=== PATIENT | female | born 1940 | race Caucasian/White ===

== ENCOUNTER 2017-03-08 09:12 | Emergency (ER) | payer OTHER, SELFPAY ==
[2017-03-08 09:22] VITALS: BP 171/101; PULSE 79; RESP 16; TEMP 36.7; O2SAT 100; BMI 33.0
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
[2017-03-08 11:15] VITALS: BP 156/98; PULSE 72; TEMP 36.9; O2SAT 98
== END 2017-03-08 11:22 | disposition home or self-care (01) ==
LOC: ER 10:08
PROVIDERS: Emergency Provider Emergency Medicine; Family Provider Family Medicine
DX: S80.01XA Contusion of right knee, initial encounter (principal); V43.52XA Car driver injured in collision with other type car in traffic accident, initial encounter; Y92.481 Parking lot as the place of occurrence of the external cause; Y93.89 Activity, other specified; Z88.6 Allergy status to analgesic agent
CPT/HCPCS: 73562; 99281; 99282

== ENCOUNTER 2017-03-15 18:39 | Emergency (ER) | payer MEDICARE, BC, SELFPAY ==
[2017-03-15 18:54] VITALS: BP 120/80; PULSE 107; RESP 20; TEMP 37; O2SAT 98; BMI 30.2
--- NOTE | 2017-03-15 18:59 | HMH.EDUTC ---
[facility] [place] Disposition Clinical Impression: Sore throat Disposition: Home, Self-Care Condition on Discharge: Good Instructions: DI for Chronic Pain -- Adult, Sore Throat Additional Instructions: Tylenol or ibuprofen as needed for pain or fever Salt water gargles every 2 as needed Follow-up with primary care this week Medication discussed with patient If symptoms worsen or do not improve return or be seen in the ER Prescriptions: Azithromycin [Zithromax 250mg tab] 250 mg PO DIRECTED 5 Days #6 tab Referrals: Andi Garvin MD [Family Provider] - Time of Disposition: 19:21 Medical Decision Making Vital Signs: 03/15/17 18:54 Temperature 98.6 F Temperature Source Temporal Artery Scan Pulse Rate [Right Radial] 107 H Respiratory Rate 20 Blood Pressure [Right Arm] 120/80 Blood Pressure Mean [Right Arm] 93 Blood Pressure Source [Right Arm] Automatic Cuff Blood Pressure Position [Right Arm] Sitting 02 Sat by Pulse Oximetry 98 Oxygen Delivery Method Room Air - Lab Data Lab Results 03/15/17 19:04: Influenza Type A Ag Negative, Influenza Type B Ag Negative, Strep Scn Rapid Clinic Negative - Sammy Inquiry Pt receiving controlled substance: No [facility] [place] HPI - General Stated complaint: Fever,sore throat Time Seen by Provider: 03/15/17 19:00 Mode of Arrival: Ambulatory Source of Information: Patient Limitations: No Limitations Description of Symptoms (Recalled from Triage Doc. by RN): PATIENT HAS A SORE THROAT HEENT Symptoms (Recalled from RN notes): No Resp Symptoms (Recalled from RN notes): No Skin Symptoms (Recalled from RN notes): No MS Symptoms (Recalled from RN notes): No Functional Status (Recalled from RN notes): NA - History of Present Illness Provider Complaint: A 42-year-old female presents for body aches, sore throat, headache, and chest congestion. Patient states she was seen on Thursday by Dr. Garvin placed on [employer]. Patient states she called him back on and time she went feeling any better she was instructed to give the antibiotic time to work. Patient states today she feels worse. - Related Data Home Medications Medication Instructions Recorded Confirmed Levothyroxine Sodium [Synthroid 125 mcg PO DAILY 03/15/17 03/15/17 125mcg (0.125mg) tablet] Meloxicam 15 mg PO DAILY 03/15/17 03/15/17 Metformin HCl [Metformin 500mg 500 tab PO BID 03/15/17 03/15/17 Tablet] Pravastatin Sodium [Pravachol] 40 mg PO DAILY 03/15/17 03/15/17 diazePAM [diazePAM 5mg Tablet] 5 tab PO DAILY 03/15/17 03/15/17 Previous Rx's Medication Instructions Recorded Azithromycin [Zithromax 250mg 250 mg PO DIRECTED 5 Days #6 tab 03/15/17 tab] Allergies Allergy/AdvReac Type Severity Reaction Status Date / Time acetaminophen [From LORTAB] Allergy Unknown Verified 03/15/17 19:00 hydrocodone [From LORTAB] Allergy Unknown Verified 03/15/17 19:00 Penicillins [PENICILLINS] Allergy Unknown Verified 03/15/17 19:00 Sulfa (Sulfonamide Allergy Unknown Verified 03/15/17 19:00 Antibiotics) [SULFA (SULFONAMIDE ANTIBIOTICS)] - Worker's Comp Is this a Worker's Comp case?: No Is this an [facility] Worker's Comp?: No Is this a [facility] Worker's Comp?: No [facility] History I have reviewed the patient's past medical history: Yes Medical History: Reports:: Diabetes Mellitus Type 2 Denies:: Cancer, Diabetes Mellitus Type 1, Internal Pacemaker, MRSA Other Surgeries: No: Pacemaker Amputation: No Fractures: No - *Social History Educational Level: Attended High School Smoking Status: Current every day smoker Alcohol Intake: never - Psychiatric History Expresses thoughts of harming self/others: None Suicide Plan Description: No Plan ROS Obtained: Yes All systems reviewed & no additional complaints - Constitutional Constitutional: Reports system reviewed and no additional complaints, except as docu, Reports body ache, Reports chills - Eyes Eyes: Reports system reviewed and n
--- NOTE | 2017-03-15 19:03 | ED_ITS ---
[facility] [place] Disposition Clinical Impression: Sore throat Disposition: Home, Self-Care Condition on Discharge: Good Instructions: DI for Chronic Pain -- Adult, Sore Throat Additional Instructions: Tylenol or ibuprofen as needed for pain or fever Salt water gargles every 2 as needed Follow-up with primary care this week Medication discussed with patient If symptoms worsen or do not improve return or be seen in the ER Prescriptions: Azithromycin [Zithromax 250mg tab] 250 mg PO DIRECTED 5 Days #6 tab Referrals: Andi Garvin MD [Family Provider] - Time of Disposition: 19:21 Medical Decision Making Vital Signs: 03/15/17 18:54 Temperature 98.6 F Temperature Source Temporal Artery Scan Pulse Rate [Right Radial] 107 H Respiratory Rate 20 Blood Pressure [Right Arm] 120/80 Blood Pressure Mean [Right Arm] 93 Blood Pressure Source [Right Arm] Automatic Cuff Blood Pressure Position [Right Arm] Sitting 02 Sat by Pulse Oximetry 98 Oxygen Delivery Method Room Air - Lab Data Lab Results 03/15/17 19:04: Influenza Type A Ag Negative, Influenza Type B Ag Negative, Strep Scn Rapid Clinic Negative - Sammy Inquiry Pt receiving controlled substance: No [facility] [place] HPI - General Stated complaint: Fever,sore throat Time Seen by Provider: 03/15/17 19:00 Mode of Arrival: Ambulatory Source of Information: Patient Limitations: No Limitations Description of Symptoms (Recalled from Triage Doc. by RN): PATIENT HAS A SORE THROAT HEENT Symptoms (Recalled from RN notes): No Resp Symptoms (Recalled from RN notes): No Skin Symptoms (Recalled from RN notes): No MS Symptoms (Recalled from RN notes): No Functional Status (Recalled from RN notes): NA - History of Present Illness Provider Complaint: A 42-year-old female presents for body aches, sore throat, headache, and chest congestion. Patient states she was seen on Thursday by Dr. Garvin placed on [employer]. Patient states she called him back on and time she went feeling any better she was instructed to give the antibiotic time to work. Patient states today she feels worse. - Related Data Home Medications Medication Instructions Recorded Confirmed Levothyroxine Sodium [Synthroid 125 mcg PO DAILY 03/15/17 03/15/17 125mcg (0.125mg) tablet] Meloxicam 15 mg PO DAILY 03/15/17 03/15/17 Metformin HCl [Metformin 500mg 500 tab PO BID 03/15/17 03/15/17 Tablet] Pravastatin Sodium [Pravachol] 40 mg PO DAILY 03/15/17 03/15/17 diazePAM [diazePAM 5mg Tablet] 5 tab PO DAILY 03/15/17 03/15/17 Previous Rx's Medication Instructions Recorded Azithromycin [Zithromax 250mg 250 mg PO DIRECTED 5 Days #6 tab 03/15/17 tab] Allergies Allergy/AdvReac Type Severity Reaction Status Date / Time acetaminophen [From LORTAB] Allergy Unknown Verified 03/15/17 19:00 hydrocodone [From LORTAB] Allergy Unknown Verified 03/15/17 19:00 Penicillins [PENICILLINS] Allergy Unknown Verified 03/15/17 19:00 Sulfa (Sulfonamide Allergy Unknown Verified 03/15/17 19:00 Antibiotics) [SULFA (SULFONAMIDE ANTIBIOTICS)] - Worker's Comp Is this a Worker's Comp case?: No Is this an [facility] Worker's Comp?: No Is this a [facility] Worker's Comp?: No [facility] History I have reviewed the patient's past
[2017-03-15 19:17] LABS: UTC Influenza A Antigen Negative (Negative); UTC Influenza B Antigen Negative (Negative); UTC Strep Screen (Rapid) Negative (Negative)
[2017-03-15 19:50] VITALS: BP 124/88; PULSE 99; RESP 20
== END 2017-03-15 19:52 | disposition home or self-care (01) ==
PROVIDERS: Emergency Provider Nurse Practitioner Family; Family Provider Family Medicine
DX: J02.9 Acute pharyngitis, unspecified (principal); E11.9 Type 2 diabetes mellitus without complications; F17.210 Nicotine dependence, cigarettes, uncomplicated; Z79.84 Long term (current) use of oral hypoglycemic drugs; Z79.899 Other long term (current) drug therapy; Z88.6 Allergy status to analgesic agent; Z88.5 Allergy status to narcotic agent; Z88.0 Allergy status to penicillin; Z88.2 Allergy status to sulfonamides
CPT/HCPCS: 87804; 87880; 99201

== ENCOUNTER → 2017-05-08 08:19 | Outpatient (CLI) | payer MEDICARE, BC, SELFPAY ==
--- NOTE | 2017-05-08 08:23 | US_ITS ---
US abdomen limited COMPARISON: CT scan abdomen pelvis with oral contrast only 09/13/2008 HISTORY: Elevated liver enzymes TECHNIQUE: Ultrasound right upper quadrant FINDINGS: The pancreas is borderline enlarged but shows a rather homogeneous increased echogenicity suggesting fatty infiltration. Liver is normal in size and show scattered areas of increased echogenicity consistent with fatty infiltration. The gallbladder is normal in size with no definite gallstones or sludge in the gallbladder wall is normal thickness. The common bile duct is normal caliber. Right kidney measures 11.0 x 5.3 x 5.2 cm and shows a good cortical medullary junction with no abnormality noted. IMPRESSION: Prominent fatty infiltration of the pancreas, mild fatty infiltration of the liver, gallbladder grossly normal
== END ==
PROVIDERS: Family Provider Family Medicine; PCP Family Medicine; Visit Provider Family Medicine
DX: R94.5 Abnormal results of liver function studies (principal)
CPT/HCPCS: 76705

== ENCOUNTER → 2017-08-03 13:37 | Outpatient (CLI) | payer MEDICARE, BC, SELFPAY ==
[2017-08-03 15:28] LABS: Alanine Aminotransferase 35 U/L (12-78); Albumin Level 4.1 gm/dL (3.4-5.0); Albumin/Globulin Ratio 1.2 (1.1-1.8); Alkaline Phosphatase 62 U/L (46-116); Anion Gap 17.2 mEq/L (5-15); Aspartate Amino Transferase 20 U/L (15-37); Bilirubin,Total 0.3 mg/dL (0.2-1.0); Blood Urea Nitrogen 28 mg/dL (7-18); Calcium 9.7 mg/dL (8.5-10.1); Carbon Dioxide 26 mmol/L (21.0-32.0); Chloride 100 mmol/L (98-107); Estimated Glomerular Filt Rate 49 ml/min (>60); Free T4 (Free Thyroxine) 1.01 ng/dl (0.76-1.46); GFR (African American) 59 ML/MIN (>60); Globulin 3.3 gm/dl (1.3-3.2); Glucose 353 mg/dL (74-106); Potassium 5.2 mmoL/L (3.5-5.1); Sodium 138 mmol/L (136-145); T4 (Thyroxine) 9.5 ug/dl (4.7-13.3); Thyroid Stimulating Hormone 0.18 uIU/ml (0.358-3.740); Total Protein,Serum 7.4 gm/dL (6.4-8.2)
[2017-08-04 10:10] LABS: Triiodothyronine (T3) Free 2.1 pg/mL (2.0-4.4)
== END ==
PROVIDERS: Visit Provider Internal Medicine Endocrinology, Diabetes & Metabolism
DX: E11.65 Type 2 diabetes mellitus with hyperglycemia (principal); E03.8 Other specified hypothyroidism; R94.6 Abnormal results of thyroid function studies
CPT/HCPCS: 36415; 80053; 84436; 84439; 84443; 84481

== ENCOUNTER → 2017-08-05 13:06 | Outpatient (CLI) | payer MEDICARE, BC, SELFPAY ==
--- NOTE | 2017-08-05 13:13 | MR_ITS ---
MR thoracic spine wo con HISTORY: LT hip and Leg pain. Tingling in Left foot. Symptoms [id number]. No trauma ITS.REASON: LEFT SIDED LOW BACK PAIN ORDERING PHYSICIAN: Stacey Guerrero PATIENT AGE: 76 years Comparison: None TECHNIQUE: Standard multiplanar multiecho sequences are performed without contrast. 3-D MIP and myelographic images are also rendered and reviewed FINDINGS: Multilevel degenerative disc disease is present at every level from T1 to T12 with decrease in the disc spaces and disc desiccation with minimal bulging discs. No disc herniation or canal stenosis. There are type II endplate changes at T4-T5, T10-11, and T11-T12. No acute fracture is evident. Small lipoma or lipid rich hemangioma is present at the superior endplate of T10 on the left at 9 mm. Mild bulging disc is present at T 11-12 slightly eccentric to the right. 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 No acute fracture. Please see above for detail
--- NOTE | 2017-08-05 13:13 | MR_ITS ---
MR lumbar spine wo con, MR 3-d myelogram/MRCP HISTORY: LT hip and leg pain. Tingling in left foot. Symptoms [id number]. No trauma ITS.REASON: LEFT SIDED LOW BACK PAIN ORDERING PHYSICIAN: Stacey Guerrero PATIENT AGE: 76 years Comparison: X-RAY 08-26-16 TECHNIQUE: Standard multiplanar multiecho sequences are performed without contrast. 3-D MIP and myelographic images are also rendered and reviewed FINDINGS: There is normal alignment. The spinal cord ends at the L1-L2 level. There is multilevel degenerative disc disease in the lower thoracic spine at T10-T11, T11-T12, and T12-L1. Minimal bulging disc are present at T10-T11 and T 11-12 and T12-L1. L1-L2: Unremarkable. L2-L3: Unremarkable. L3-L4: Degenerative disc disease with bulging disc along with facet and ligamentum flavum hypertrophy with bilateral lateral recess narrowing and mild bilateral foraminal narrowing left slightly greater than right. L4-L5: Degenerative disc disease with bulging disc along with moderate facet and ligamentum flavum hypertrophy with severe bilateral lateral recess narrowing and moderate bilateral foraminal narrowing. There is minimal left paracentral disc protrusion which results in increased left lateral recess narrowing compared to the right with impingement upon the left L5 nerve.. There is transverse canal stenosis at this level with canal measuring approximately 7 mm. L5-S1: Mild to moderate facet hypertrophic change IMPRESSION: 1. Multilevel degenerative disc disease with facet and ligamentum flavum hypertrophy with bulging disc resulting in lateral recess and foraminal narrowing. Please see above for detailed description at each level. 2. Degenerative disc disease at L4-L5 with bulging disc along with moderate facet and ligamentum flavum hypertrophy with severe bilateral lateral recess narrowing and moderate bilateral foraminal narrowing. There is minimal left paracentral disc protrusion which results in increased left lateral recess narrowing compared to the right with impingement upon the left L5 nerve.. There is transverse canal stenosis at this level with canal measuring approximately 7 mm. IMPRESSION:
== END ==
PROVIDERS: Family Provider Family Medicine; PCP Family Medicine; Visit Provider Nurse Practitioner
DX: M54.42 Lumbago with sciatica, left side (principal)
CPT/HCPCS: 72146; 72148; 76376

== ENCOUNTER → 2017-10-29 08:59 | Outpatient (POV) | payer MEDICARE, BC, SELFPAY | PROVIDERS: Visit Provider Dermatology | DX: Z00.00 Encounter for general adult medical examination without abnormal findings (principal) ==

== ENCOUNTER → 2017-11-19 07:31 | Outpatient (CLI) | payer MEDICARE, BC, SELFPAY ==
[2017-11-19 09:51] LABS: Alanine Aminotransferase 24 U/L (12-78); Albumin/Globulin Ratio 1.3 (1.1-1.8); Alkaline Phosphatase 58 U/L (46-116); Anion Gap 11.9 mEq/L (5-15); Aspartate Amino Transferase 17 U/L (15-37); Bilirubin,Total 0.4 mg/dL (0.2-1.0); Blood Urea Nitrogen 19 mg/dL (7-18); Calcium 9.2 mg/dL (8.5-10.1); Carbon Dioxide 30 mmol/L (21.0-32.0); Chloride 104 mmol/L (98-107); Chol/HDL Ratio 3.3 (1-3.5); Cholesterol 255 mg/dL (140-200); Creatinine,Serum 0.85 mg/dL (0.55-1.02); Estimated Glomerular Filt Rate 65 ml/min (>60); GFR (African American) 79 ML/MIN (>60); Glucose 150 mg/dL (74-106); HDL Cholesterol 77 mg/dL (29-89); LDL Cholesterol 159 mg/dL (0-130); Potassium 4.9 mmoL/L (3.5-5.1); Sodium 141 mmol/L (136-145); Thyroid Stimulating Hormone 4.03 uIU/ml (0.358-3.740); Triglycerides 97 mg/dL (30-200); VLDL Cholesterol 19 mg/dL (0-40)
== END ==
PROVIDERS: PCP Family Medicine; Visit Provider Internal Medicine Endocrinology, Diabetes & Metabolism
DX: E78.00 Pure hypercholesterolemia, unspecified (principal); E11.65 Type 2 diabetes mellitus with hyperglycemia; E03.8 Other specified hypothyroidism
CPT/HCPCS: 36415; 80053; 80061; 84439; 84443

== ENCOUNTER → 2019-03-22 14:12 | Outpatient (POV) | payer MEDICARE, BC, SELFPAY | PROVIDERS: Visit Provider Dermatology | DX: Z00.00 Encounter for general adult medical examination without abnormal findings (principal) ==

== ENCOUNTER → 2020-05-09 07:20 | Outpatient (CLI) | payer MEDICARE, BC, SELFPAY ==
[2020-05-09 08:41] LABS: Coronavirus 19 IgG Antibody Negative (Negative); Coronavirus 19 IgM Antibody Negative (Negative)
== END ==
PROVIDERS: Visit Provider Internal Medicine Gastroenterology
DX: Z01.818 Encounter for other preprocedural examination (principal); Z20.822 Contact with and (suspected) exposure to COVID-19; Z12.11 Encounter for screening for malignant neoplasm of colon
CPT/HCPCS: 36415; 86328

== ENCOUNTER 2020-05-11 08:33 | Day surgery (SDC) | payer MEDICARE, BC, SELFPAY ==
[2020-04-03 13:44] VITALS: BMI 30.9
[2020-05-04 14:07] VITALS: BMI 30.9
[2020-05-11] VITALS (7 sets, daily range): BP systolic 84–162; BP diastolic 44–84; PULSE 62–83; RESP 14–18; TEMP 36.4–36.5; O2SAT 90–100
--- NOTE | 2020-05-11 10:16 | HMH.ANESCL ---
[facility] Anesthesia Checklist - Structural Data Admitted From: Home Planned Operative Procedure/s: colonoscopy Consent for Planned Operative Procedure(s) Verified: Yes - Airway Assessment C-Spine Mobility Assessed: Yes TMJ Mobility Assessed: Yes Dentition: Good Dentition - Neurological Assessment Level of Consciousness: Awake, Alert, Appropriate - Anesthesia Plan Anesthesia Risk discussed: Yes Anesthesia Plan: Verified ASA Class: II Anesthesia Type: MAC [facility] History I have reviewed the patient's past medical history: Yes Medical History: Reports:: Diabetes Mellitus Type 2 Denies:: Cancer, Diabetes Mellitus Type 1, Internal Pacemaker, MRSA, Seizures *Have you ever received a pneumonia vaccine?: No *Have you received a flu vaccine this season?: Yes Anesthesia experience/problems:: none Laterality Cases: Right: Other Other Surgeries: No: Pacemaker Amputation: No Fractures: No - *Social History Last grade of school completed: 7th or 8th Smoking Status: Never smoker Alcohol Intake: never Substance Use Type: denies use *Occupational Status:: retired Housing: house Household Members: spouse *Travel in the last 8 weeks: None Family Hx:: Cancer, Stroke
--- NOTE | 2020-05-11 10:49 | HMH.PROC ---
[facility] Procedure Note Procedure Note:: Colonoscopy Procedure Report: Colonoscopy with cold snare polypectomy Endoscopist: Laureano Menezes II, MD Referring physician: Andi Garvin MD Date of Procedure: May 11, 2020 Equipment: Olympus 190 variable stiffness pediatric colonoscope Sedation: MAC sedation Indication: Mrs. Eduardo is a 79-year-old female who is here for diagnostic colonoscopy secondary to some change in bowel habits. She has had more constipation with incomplete bowel evacuation over the last 3 to 4 months. She also reports some bloating and lower back aching. This can be in relation to her obstipation. She has had some fatigue. She reports no rectal bleeding, weight loss or family history of colon cancer. Her last colonoscopy was January 2007 (Dr. Edmundo Potter) at which time her colonoscopy was normal except for some mild diverticulosis. Procedure: Prior to the procedure, a history and physical exam was performed, and patient's medications and allergies were reviewed. The risks, benefits and alternatives of the sedation and procedure were discussed with the patient. All questions were answered and informed consent was obtained. The patient was brought to the procedure room. Patient identification and proposed procedure were verified by the physician and the nurse. The patient was placed in a left lateral decubitus position and the scope was passed under direct vision. Throughout the procedure, the patient's blood pressure, pulse, and oxygen saturations were monitored continuously. The colonoscopy was accomplished without difficulty. The patient tolerated the procedure well. Findings: On digital rectal examination there was normal rectal tone. There were no external hemorrhoids. The colonoscope was introduced through the anal canal to the rectum and advanced to the cecum. The ileocecal valve and appendiceal orifice were identified. The scope was advanced a short distance into the ileum which appeared grossly normal. The scope was then withdrawn into the colon. The cecum, ascending and transverse colon and mucosa were grossly normal. There were scattered diverticuli throughout the descending and sigmoid colon (LEFT colon). There were 2 colon polyps (sigmoid x1 (4 mm) and rectum x1 (3 mm)) which were both removed via cold snare polypectomy. The rectum itself was normal. Upon retroflexion within the rectum there were grade 1-2 internal hemorrhoids. The preparation was excellent throughout with Hopewell Preparation Score of 9. The cecal time was 12 minutes. Impression: 1. Diminutive colonic polyps x2 2. Left-sided diverticulosis 3. Grade 1-2 internal hemorrhoids Plan: I will follow up with a polyp histology and the patient will not require any further preventive/surveillance colonoscopy. I would encourage a fiber bowel regimen (combined MiraLAX plus Metamucil) by mouth every morning on a maintenance basis.
[2020-05-11 11:30] LABS: POC Glucose,Bedside 126 (70-110)
== END 2020-05-11 11:40 | disposition home or self-care (01) ==
PROVIDERS: PCP Family Medicine; Visit Provider Internal Medicine Gastroenterology
PROC: 0DJD8ZZ Inspection of Lower Intestinal Tract, Via Natural or Artificial Opening Endoscopic (ICD-10-PCS; CPT 45378; principal; 2020-05-11 10:30)
DX: K63.5 Polyp of colon (principal); K62.1 Rectal polyp; K57.30 Diverticulosis of large intestine without perforation or abscess without bleeding; K64.0 First degree hemorrhoids; E11.9 Type 2 diabetes mellitus without complications; Z82.3 Family history of stroke; Z80.9 Family history of malignant neoplasm, unspecified; Z88.6 Allergy status to analgesic agent; Z88.0 Allergy status to penicillin; Z88.2 Allergy status to sulfonamides; Z79.899 Other long term (current) drug therapy
CPT/HCPCS: 45385; 82962; 88305

== ENCOUNTER → 2020-11-20 17:01 | Outpatient (CLI) | payer MEDICARE, BC, SELFPAY ==
[2020-11-20 17:43] LABS: Basophils # 0.1 K/mm3 (0-0.2); Basophils % 0.8 % (0.1-2.0); Eosinophils # 0.2 K/mm3 (0.0-0.4); Hematocrit 37.1 % (37.0-47.0); Hemoglobin 11.6 g/dL (12.2-16.2); Lymphocytes % 15.6 % (10-50); Mean Corpuscular HGB Conc 31.3 g/dL (31.8-35.4); Mean Corpuscular Hemoglobin 29.3 pg (27.0-31.2); Mean Corpuscular Volume 93.6 fl (81-99); Mean Platelet Volume 8.3 fl (7.4-10.4); Monocytes # 0.3 K/mm3 (0.1-1.0); Monocytes % 5.4 % (1.7-9.3); Neutrophils # 4.6 K/mm3 (1.8-7.8); Neutrophils % 75.1 % (37.0-80.0); Platelet Count 330 K/mm3 (142-424); Red Blood Count 3.96 M/mm3 (4.20-5.40); Red Cell Distribution Width 12.9 % (11.5-17.5); White Blood Count 6.1 K/mm3 (4.8-10.8)
== END ==
PROVIDERS: PCP Family Medicine; Visit Provider Family Medicine
DX: Z20.822 Contact with and (suspected) exposure to COVID-19 (principal)
CPT/HCPCS: 36415; 85025

== ENCOUNTER 2020-11-21 02:21 | Emergency (ER) | payer MEDICARE, BC, SELFPAY ==
[2020-11-21 02:22] VITALS: BP 166/95; PULSE 97; RESP 16; TEMP 37.5; O2SAT 99; BMI 29.9
--- NOTE | 2020-11-21 02:29 | XR_ITS ---
PROCEDURE INFORMATION: Exam: XR Chest Exam date and time: 11/21/2020 2:29 AM Age: 79 years old Clinical indication: Cough; Patient HX: Covid TECHNIQUE: Imaging protocol: XR of the chest. Views: 2 views. COMPARISON: SPTHORWO MR thoracic spine wo con 08/05/2017 1:23 PM FINDINGS: Lungs: Unremarkable. No consolidation. Pleural spaces: Unremarkable. No pleural effusion. No pneumothorax. Heart/Mediastinum: Unremarkable. No cardiomegaly. Bones/joints: Unremarkable. IMPRESSION: No acute findings.
[2020-11-21 03:00] VITALS: BP 157/80; PULSE 78; RESP 18; O2SAT 95
[2020-11-21 03:06] LABS: Influenza A, PCR Not Detected (NotDetected); Influenza B, PCR Not Detected (NotDetected)
[2020-11-21 03:08] LABS: Basophils % 0.7 % (0.1-2.0); Eosinophils # 0.1 K/mm3 (0.0-0.4); Eosinophils % 1.4 % (0.1-12.0); Hematocrit 39.5 % (37.0-47.0); Hemoglobin 12.5 g/dL (12.2-16.2); Lymphocytes # 1.1 K/mm3 (0.7-4.5); Lymphocytes % 17.5 % (10-50); Mean Corpuscular HGB Conc 31.6 g/dL (31.8-35.4); Mean Corpuscular Hemoglobin 29.4 pg (27.0-31.2); Mean Corpuscular Volume 93.1 fl (81-99); Mean Platelet Volume 8.3 fl (7.4-10.4); Monocytes # 0.7 K/mm3 (0.1-1.0); Monocytes % 10.5 % (1.7-9.3); Neutrophils # 4.4 K/mm3 (1.8-7.8); Neutrophils % 69.8 % (37.0-80.0); Platelet Count 353 K/mm3 (142-424); Red Blood Count 4.25 M/mm3 (4.20-5.40); White Blood Count 6.3 K/mm3 (4.8-10.8)
[2020-11-21 03:13] LABS: Alanine Aminotransferase 21 U/L (12-78); Albumin Level 4.2 g/dl (3.5-5.0); Albumin/Globulin Ratio 1.4 (1.1-1.8); Alkaline Phosphatase 61 U/L (38-126); Anion Gap 11.9 mEq/L (5-15); Aspartate Amino Transferase 28 U/L (14-36); Bilirubin,Total 0.2 mg/dl (0.2-1.3); Blood Urea Nitrogen 14 mg/dl (7-17); Calcium 8.8 mg/dl (8.4-10.2); Carbon Dioxide 24 mmol/L (22.0-30.0); Chloride 106 mmol/L (98-107); Creatinine Clearance Estimated 55 mL/min (50-200); Estimated Glomerular Filt Rate 70 ml/min (>60); GFR (African American) 84 ML/MIN (>60); Globulin 2.9 g/dL (1.3-3.2); Glucose 215 mg/dl (74-100); Potassium 3.9 mmoL/L (3.5-5.1); Sodium 138 mmol/L (136-145); Total Protein,Serum 7.1 g/dl (6.3-8.2)
[2020-11-21 03:20] LABS: Coronavirus 19, PCR Detected (NotDetected)
[2020-11-21 03:21] LABS: C-Reactive Protein 31.1 mg/L (0-4)
[2020-11-21 03:34] LABS: Procalcitonin 0.097 ng/mL (0.0-2.0)
[2020-11-21 03:49] LABS: Erythrocyte Sedimentation Rate 22 mm/hr (0-30)
[2020-11-21 04:00] VITALS: BP 149/63; PULSE 72; O2SAT 97
--- NOTE | 2020-11-21 04:24 | HMH.EDSOB ---
ED Disposition Clinical Impression: COVID-19 Disposition: Home, Self-Care Condition on Discharge: Good Instructions: DI for COVID-19 (Suspected or Confirmed ) Additional Instructions: fluids and f/u with pcp Referrals: Andi Garvin MD [Primary Care Provider] - - Critical Care Critical Care Time: No Attestation: On 11/21/20, the high probability of a clinically significant, sudden or life threatening deterioration of the following system(s) required my full and direct attention, intervention and personal management. The time I documented below is in addition to time spent performing reported procedures but includes the following listed in this critical care notation. Medical Decision Making - Medical Records Medical records reviewed: Yes: I reviewed the patient's medical records. - Sammy Inquiry Pt receiving controlled substance: No Vital Signs: 11/21/20 02:22 11/21/20 03:00 11/21/20 04:00 Temperature 99.5 F Temperature Source Oral Pulse Rate 78 72 Pulse Rate [Right] 97 H Respiratory Rate 16 18 Blood Pressure 157/80 H 149/63 H Blood Pressure [Right Arm] 166/95 H Blood Pressure Mean [Right Arm] 118 02 Sat by Pulse Oximetry 99 95 97 Oxygen Delivery Method Room Air Room Air Room Air - Lab Data Lab results reviewed: Yes: I reviewed the patient's lab results. Lab Results 11/21/20 02:42: WBC 6.3, RBC 4.25, Hgb 12.5, Hct 39.5, MCV 93.1, MCH 29.4, MCHC 31.6 L, RDW 13.0, Plt Count 353, MPV 8.3, Neut % (Auto) 69.8, Lymph % (Auto) 17.5, [place] % (Auto) 10.5 H, Eos % (Auto) 1.4, Baso % (Auto) 0.7, Neut # (Auto) 4.4, Lymph # (Auto) 1.1, [place] # (Auto) 0.7, Eos # (Auto) 0.1, Baso # (Auto) 0.0, ESR 22 11/21/20 02:42: Sodium 138, Potassium 3.9, Chloride 106, Carbon Dioxide 24, Anion Gap 11.9, BUN 14, Creatinine 0.80, Estimated Creat Clear 55, Estimated GFR 70, Est GFR ( Amer) 84, Glucose 215 H, Calcium 8.8, Total Bilirubin 0.2, AST 28, ALT 21, Alkaline Phosphatase 61, C-Reactive Protein 31.1 H, Total Protein 7.1, Albumin 4.2, Globulin 2.9, Albumin/Globulin Ratio 1.4, Procalcitonin 0.097 11/21/20 02:42: SARS-CoV-2 (PCR) Detected A, Influenza A Untype (PCR) Not detected, Influenza Type B (PCR) Not detected Result diagrams: 11/21/20 02:42 11/21/20 02:42 Orders (Tests/Meds): ED MEDICATIONS Generic Name Dose Route Start Last Admin Trade Name Freq PRN Reason Stop Dose Admin Lactated Ringer's 1,000 mls @ 999 mls/hr 11/21/20 03:00 11/21/20 02:53 Lactated Ringer's 1000 Ml Bag IV 11/21/20 04:00 999 mls/hr .Q1H1M RODOLFO Administration Discontinued Medications Generic Name Dose Route Start Last Admin Trade Name Freq PRN Reason Stop Dose Admin Dexamethasone Sodium Phosphate 10 mg 11/21/20 03:37 11/21/20 03:38 Dexamethasone 4mg/Ml 5ml Mdv IV 11/21/20 03:38 10 mg ONCE ONE Administration ORDERS Category Date Time Status Chest XR 2 view (NOT portable) [XR chest 2V] Stat Exams 11/21/20 02:29 Taken - Radiology Data #1 Image(s): Chest Image Reviewed: Yes I have reviewed radiologist's interpretation Preliminary Findings: Normal/NAD Medical Decision Narrative: pt has covid-19 Resp/SOB HPI - General Chief Complaint: Upper Respiratory Infection Stated Complaint: cough,congestion Time Seen by Provider: 11/21/20 03:15 Mode of Arrival: Ambulatory Source of Information: Patient, Medical Record Limitations: No Limitations Description of Symptoms (Recalled from ER Triage Doc. by RN): cough and chills for 2 days - History of Present Illness cough and sob over the last 2 days MD Complaint: cough Onset (ago): day(s) Severity: moderate Associated symptoms: denies other symptoms - Related Data Home oxygen amount: none Home Medications Medication Instructions Recorded Confirmed Levothyroxine Sodium [Synthroid 125 mcg PO DAILY 03/15/17 05/11/20 125mcg (0.125mg) tablet] diazePAM [diazePAM 5mg Tablet] 5 tab PO DAILY 03/15/17 05/04/20 Liraglu
[2020-11-21 04:30] VITALS: BP 152/78; PULSE 71; RESP 18; TEMP 36.7; O2SAT 97
== END 2020-11-21 04:36 | disposition home or self-care (01) ==
PROVIDERS: Emergency Provider Emergency Medicine; PCP Family Medicine
DX: U07.1 COVID-19 (principal); E11.65 Type 2 diabetes mellitus with hyperglycemia; Z88.0 Allergy status to penicillin; Z88.2 Allergy status to sulfonamides
CPT/HCPCS: 71046; 80053; 84145; 85025; 85651; 86140; 96365; 96375; 99283; C9803; U0003; U0005

== ENCOUNTER 2020-11-24 10:05 | Outpatient (CLI) | payer MEDICARE, BC, SELFPAY ==
[2020-11-24] VITALS (7 sets, daily range): BP systolic 116–150; BP diastolic 45–86; PULSE 60–89; RESP 16–20; TEMP 36.9–37; O2SAT 96–100
== END 2020-11-24 12:36 | disposition home or self-care (01) ==
PROVIDERS: PCP Family Medicine; Visit Provider Family Medicine
DX: U07.1 COVID-19 (principal); Z23 Encounter for immunization
CPT/HCPCS: 96365

== ENCOUNTER → 2021-03-07 11:44 | Outpatient (CLI) | payer MEDICARE, BC, SELFPAY ==
--- NOTE | 2021-03-07 11:52 | XR_ITS ---
FINAL REPORT CLINICAL HISTORY: PAIN IN RIGHT ANKLE original injury in 1979, hx of surgery 1995, some pain ever since, worse pain and stiffness x 2 weeks FINDINGS: RIGHT ANKLE 3 views were obtained. There is no acute fracture or dislocation. There are postoperative changes of the distal tibia and talus with chronic fusion. 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 There is a chronic deformity of the distal fibula. There are multiple small foreign bodies in the ankle. IMPRESSION: Postoperative and degenerative changes as described. Multiple small foreign bodies in the ankle. Reviewed, Interpreted and Dictated by Thompson Osullivan III, MD Transcribed by Krissy Castelan Authenticated by Thompson Osullivan III, MD on 03/07/2021 01:00:15 PM [facility]
== END ==
PROVIDERS: PCP Internal Medicine Adolescent Medicine; Visit Provider Nurse Practitioner Family
DX: M25.571 Pain in right ankle and joints of right foot (principal); G89.29 Other chronic pain
CPT/HCPCS: 73610

== ENCOUNTER 2021-09-06 10:02 | Outpatient (RCR) | payer MEDICARE, BC, SELFPAY | END 2021-09-06 11:00 | disposition home or self-care (01) | LOC: PT 10:02 | PROVIDERS: Visit Provider Orthopaedic Surgery | DX: M25.571 Pain in right ankle and joints of right foot (principal) | CPT/HCPCS: 97760 ==

== ENCOUNTER → 2021-09-13 14:05 | Outpatient (CLI) | payer MEDICARE, BC, SELFPAY ==
--- NOTE | 2021-09-13 14:06 | CT_ITS ---
FINAL REPORT TECHNIQUE: Thin section axial CT images with coronal and sagittal reformats were performed. This study was performed with techniques to keep radiation doses as low as reasonably achievable (ALARA). Individualized dose reduction techniques using automated exposure control or adjustment of mA and/or kV according to the patient''s size were employed. CLINICAL HISTORY: right ankle pain FINDINGS: CT RIGHT ANKLE WITHOUT CONTRAST There are no fractures. There are postoperative changes of the medial malleolus and distal tibia with 3 screws present. There is resection of the distal fibula with multiple soft tissue calcifications in the region of the ankle. There is fusion of the talus and navicular. 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 There are no masses or fluid collections. There are no soft tissue abnormalities. IMPRESSION: Postoperative and degenerative change as described. Reviewed, Interpreted and Dictated by Thompson Osullivan III, MD Transcribed by Krissy Castelan Authenticated and [facility]
== END ==
PROVIDERS: PCP Internal Medicine Adolescent Medicine; Visit Provider Orthopaedic Surgery
DX: M25.571 Pain in right ankle and joints of right foot (principal)
CPT/HCPCS: 73700

== ENCOUNTER → 2022-10-09 15:21 | Outpatient (CLI) | payer MEDICARE, BC, SELFPAY ==
--- NOTE | 2022-10-09 15:27 | XR_ITS ---
FINAL REPORT CLINICAL HISTORY: SCIATICA COMPARISON: None FINDINGS: RIGHT HIP Two views of the right hip demonstrate no acute fracture or dislocation. There is moderate right and mild left hip degenerative change. The visualized bony structures are well aligned. No soft tissue abnormality is seen. IMPRESSION: Degenerative change without acute bony abnormality. Reviewed, Interpreted and Dictated by Thompson Osullivan III, MD Transcribed by Cyndi Garcia Authenticated and [facility]
--- NOTE | 2022-10-09 15:27 | XR_ITS ---
FINAL REPORT CLINICAL HISTORY: SCIATICA COMPARISON: 08/26/2016 FINDINGS: 5 views of the lumbar spine were obtained. There is no evidence of fracture or dislocation. The vertebral alignment is normal. There is moderate degenerative change with multilevel osteophytes. There is facet arthropathy in the lower lumbar spine. No paraspinous soft tissue abnormalities identified. IMPRESSION: Degenerative changes without acute bony abnormality. Reviewed, Interpreted and Dictated by Thompson Osullivan III, MD Transcribed by Cyndi Garcia Authenticated and [facility]
== END ==
PROVIDERS: PCP Nurse Practitioner Family; Visit Provider Nurse Practitioner Family
DX: M54.41 Lumbago with sciatica, right side (principal); M25.551 Pain in right hip; G89.29 Other chronic pain
CPT/HCPCS: 72110; 73502

== ENCOUNTER 2023-07-09 14:13 | Outpatient (CLI) | payer MEDICARE, BC, SELFPAY ==
--- NOTE | 2023-07-09 14:18 | XR_ITS ---
FINAL REPORT CLINICAL HISTORY: rt hand pain, trigger finger in 3rd digit x 2 months FINDINGS: RIGHT HAND Three views demonstrate no acute fracture or dislocation. There are mild to moderate degenerative changes.. The soft tissues are unremarkable. IMPRESSION: No acute bony abnormality. Reviewed, Interpreted and Dictated by Thompson Osullivan III, MD Transcribed by Judy Hart Authenticated and [facility]
== END 2023-07-09 23:59 | disposition home or self-care (01) ==
LOC: RAD 14:14
PROVIDERS: PCP Internal Medicine Adolescent Medicine; Visit Provider Orthopaedic Surgery
DX: M79.641 Pain in right hand (principal)
CPT/HCPCS: 73130

== ENCOUNTER 2023-07-29 07:46 | Day surgery (SDC) | payer MEDICARE, BC, SELFPAY ==
[2023-07-27 13:53] VITALS: BMI 28.3
[2023-07-29] VITALS (8 sets, daily range): BP systolic 100–142; BP diastolic 50–96; PULSE 63–82; RESP 16–18; TEMP 36.4–37; O2SAT 91–99; BMI 28.3
[2023-07-29] MEDS: LACTATED RINGERS 1000ML 1,000 ML 25 ML IV (08:12)
[2023-07-29 08:28] LABS: POC Glucose,Bedside 151 (70-110)
[2023-07-29] MEDS: LIDOCAINE 1% W/EPI 1:100,000 20ML VIAL 20 ML (08:44)
--- NOTE | 2023-07-29 08:48 | EXP.ANES.CKL ---
[facility] Disclaimer: The information contained in this section may have been updated after the patient was seen, as this information can be updated by other users. Medical History Tinnitus, bilateral Diabetes mellitus Bilateral tinnitus Family History Other No significant family history Social History (Updated 07/29/23 @ 08:14 by Nohemi Tinajero RN) Smoking Status: Never smoker second hand exposure: No alcohol intake: never substance use type: denies use current occupational status: retired Travel in the last 8 weeks: None household members: spouse housing: house current occupational exposures/hazards: No caffeine: Yes [facility] Anesthesia Checklist Patient Identification Patient Identification: Arm Band Structural Data Admitted From: Home Planned Operative Procedure/s: Right Middle Finger Trigger Finger Release Consent for Planned Operative Procedure(s) Verified: Yes Verified Documents: Surgical Consent and History and Physical NPO Status Verified Time NPO: 00:00 Additional verifications Anesthesia Reactions: No Hx Blood Transfusions: No Blood Transfusion Reaction: No Airway Assessment Mallampati Score:: Class II C-Spine Mobility Assessed: Yes TMJ Mobility Assessed: Yes Dentition: Good Dentition Neurological Assessment Level of Consciousness: Awake, Alert and Appropriate Anesthesia Plan Anesthesia Risk discussed: Yes Anesthesia Plan: Verified ASA Class: III Anesthesia Type: MAC
--- NOTE | 2023-07-29 09:03 | EXP.OP.NOTE ---
Date of procedure: 07/29/23 Pre-op Diagnosis:: Right middle trigger finger Post-op Diagnosis:: Same Procedure performed:: Right hand A1 hamlet release middle finger Surgeon:: Von Doll DO GRAVITY PROSPECTING OPERATOR:: Dylan Barrow Anesthesia: MAC and local Estimated blood loss (mL): 0 Operative findings:: Trigger finger right middle finger Operative note:: Patient is identified preoperatively. Right middle finger marked with yes my initials. Transferred operative suite. Placed upon operating bed. Given sedation. Right upper extremities and prepped and draped normal sterile fashion. Once prepped and draped final operative timeout performed to identify proper patient procedure and extremity. Everyone involved the case agreed. No counter indications to beginning. Marking pen was used to dilia plan incision over the A1 hamlet and middle finger. Esmarch was used to exsanguinate the extremity and pneumatic tourniquet was inflated to 250 mmHg. Skin knife was used incise the skin. Dissection was taken down with the scissors to identify the A1 hamlet. Retractors were placed with [place] retractors and single skin hook. The A1 hamlet clearly seen. A [place] blade was used to incise the A1 hamlet in line with the tendon. The completion of the release of the A1 hamlet was performed with scissors. Tendons were brought outside the skin to make sure there were no adhesions or further triggering. Irrigation performed skin closed with nylon stitch local anesthesia infiltrated to the incision site sterile hand dressing placed patient waken anesthesia taken recovery stable condition. Condition: stable Disposition: PACU Complications:: None apparent
== END 2023-07-29 10:00 | disposition home or self-care (01) ==
PROVIDERS: PCP Internal Medicine Adolescent Medicine; Visit Provider Orthopaedic Surgery
PROC: (CPT 26055; principal; 2023-07-29 09:30)
DX: M65.331 Trigger finger, right middle finger (principal); E11.9 Type 2 diabetes mellitus without complications; Z79.4 Long term (current) use of insulin; Z79.899 Other long term (current) drug therapy
CPT/HCPCS: 26055; 82962; 96375; J7120

== ENCOUNTER 2023-09-14 12:29 | Emergency (ER) | payer MEDICARE, BC, SELFPAY ==
[2023-09-14 12:30] VITALS: BP 184/92; PULSE 105; RESP 18; O2SAT 99; BMI 27.8
--- NOTE | 2023-09-14 12:51 | PC.NURSE ---
Dr. Sanchez at [facility] for pt eval
--- NOTE | 2023-09-14 12:52 | CT_ITS ---
FINAL REPORT CLINICAL HISTORY: presyncope, dysarthria FINDINGS: Moderate atrophy and chronic ischemic white matter changes are noted. No cortical edema is present. There is no mass or hemorrhage. Ventricles are normal. Bone windows show no skull fracture or obvious obstructive lesion. IMPRESSION: 1. No acute intracranial abnormality or obvious mass. 2. Atrophy and chronic ischemic white matter changes as above. Authenticated and [facility]
--- NOTE | 2023-09-14 12:52 | CT_ITS ---
FINAL REPORT TECHNIQUE: Thin section axial CT with contrast with multiplanar reconstruction CLINICAL HISTORY: presyncope, dysarthria FINDINGS: Pulmonary vessels enhance in normal fashion without evidence of embolism. Thoracic aorta shows no dissection or aneurysm. No pulmonary mass or infiltrate is present. There is no significant pleural effusion. There is no significant pericardial effusion. No mediastinal or hilar adenopathy is present. Small hiatal hernia is present. Bilateral adrenal nodules are noted nonspecific although adenomas are favored. IMPRESSION: 1. No evidence of pulmonary embolism 2. No evidence of thoracic aortic dissection or aneurysm. Great vessel origins are widely patent. Authenticated and [facility]
--- NOTE | 2023-09-14 12:52 | CT_ITS ---
FINAL REPORT CLINICAL HISTORY: presyncope, dysarthria FINDINGS: CT NECK ANGIO, WITH CONTRAST TECHNIQUE: Thin section axial CT with IV contrast supplemented with 3D MIP reconstruction NASCET criteria and technique was utilized during interpretation. FINDINGS: Aortic arch: Arch shows no significant narrowing. Great vessel origins are widely patent. Right carotid: No significant stenosis is seen of the cervical common or internal carotid artery. Left carotid: No significant stenosis is seen of the cervical common or internal carotid artery. Vertebrals: Left vertebral artery is dominant. No significant stenosis is present. IMPRESSION: No significant stenosis of the cervical carotid arteries This study was performed using automated techniques to achieve radiation exposure as low as reasonably Authenticated and [facility]
--- NOTE | 2023-09-14 12:52 | CT_ITS ---
FINAL REPORT CLINICAL HISTORY: presyncope, dysarthria FINDINGS: CTA HEAD TECHNIQUE: Thin section axial CT with contrast with 3D MIP reconstruction FINDINGS: No aneurysm is seen. Major intracranial vessels are patent without significant stenosis. . IMPRESSION: No evidence of acute large vessel occlusive disease This study was performed using automated techniques to achieve radiation exposure as low as reasonably achievable Authenticated and [facility]
[2023-09-14 13:00] VITALS: BP 166/82; PULSE 91; O2SAT 96
[2023-09-14 13:03] LABS: Basophils % 0.6 % (0.1-2.0); Eosinophils # 0.2 K/mm3 (0.0-0.4); Eosinophils % 2.2 % (0.1-12.0); Hematocrit 36.3 % (37.0-47.0); Hemoglobin 12.9 g/dL (12.2-16.2); Lymphocytes # 2.8 K/mm3 (0.7-4.5); Lymphocytes % 35.8 % (10-50); Mean Corpuscular HGB Conc 35.6 g/dL (31.8-35.4); Mean Corpuscular Hemoglobin 32.8 pg (27.0-31.2); Mean Corpuscular Volume 92.2 fl (81-99); Mean Platelet Volume 8.4 fl (7.4-10.4); Monocytes # 0.5 K/mm3 (0.1-1.0); Monocytes % 6.3 % (1.7-9.3); Neutrophils # 4.3 K/mm3 (1.8-7.8); Neutrophils % 55.2 % (37.0-80.0); Platelet Count 329 K/mm3 (142-424); Red Blood Count 3.94 M/mm3 (4.20-5.40); Red Cell Distribution Width 13.8 % (11.5-17.5); White Blood Count 7.7 K/mm3 (4.8-10.8)
--- NOTE | 2023-09-14 13:05 | HMH.EDGENADL ---
Discharge Plan Disposition Patient Disposition: Home, Self-Care Condition: Good Prescriptions Prescriptions: No Action levothyroxine [Synthroid] 112 mcg tablet 112 mcg PO DAILY insulin glargine [Basaglar KwikPen U-100 Insulin] 100 unit/mL (3 mL) insulin pen 3 unit SQ DAILY Trulicity 3 mg/0.5 mL pen injector 3 mg SQ WEEKLY Jardiance 25 mg tablet 25 mg PO DAILY diazepam [Valium] 5 MG tablet 5 tab PO DAILY atorvastatin [Lipitor] 10 mg Tablet 10 mg PO DAILY tramadol 50 mg tablet 50 mg PO Q8H PRN (Reason: pain) Qty: 20 0RF Referrals Follow up/Referrals: Petey Gonzalez MD [Primary Care Provider] - See instructions Activity Restrictions/Add. Instructions Additional Instructions/Restrictions: You were evaluated in the emergency department today. Please follow-up very closely with your primary care provider. Return to the emergency department for new or worsening symptoms. Clinical Impressions Clinical Impression: Heart palpitations Instructions Patient Instructions: DI for Palpitations Discharge ED Provider: Kym Sanchez General Adult HPI General Chief complaint: Dizziness Stated complaint: tongue feels swollen shaking light headed Time Seen by Provider: 09/14/23 12:44 Mode of Arrival: Wheelchair Source of Information: Patient Limitations: No Limitations Description of Symptoms (Recalled from ER Triage Doc. by RN): pt c/o light headedness, her mouth feels like its dry and thickening and that her heart is racing. History of Present Illness HPI narrative: This patient is an 82-year-old female with a history of hypothyroidism, hyperlipidemia, diabetes, and tinnitus presenting to the emergency department for evaluation with concern for speech difficulty. Patient states that she was here bringing her to his doctor's office when she experienced sudden onset of lightheadedness, heart palpitations, dry mouth, and difficulty speaking. She states that her tongue feels like it is very thick and her mouth feels very dry. She denies experiencing any like this in the past. She does note that she was under great stress bringing her here, but she denies any other specific concerns or complaints. No visual disturbance, numbness, tingling, unilateral weakness, gait instability, or other concerns. Related Data Home Medications Medication Instructions Recorded Confirmed diazepam 5 mg tablet (Valium) 5 tab PO DAILY Anxiety 03/15/17 08/13/23 dulaglutide 3 mg/0.5 mL 3 mg SQ WEEKLY 09/06/21 08/13/23 subcutaneous pen injector (Trulicity) insulin glargine 100 unit/mL (3 3 unit SQ DAILY 09/06/21 08/13/23 mL) subcutaneous pen (Basaglar KwikPen U-100 Insulin) levothyroxine 112 mcg tablet 112 mcg PO DAILY 09/06/21 08/13/23 (Synthroid) empagliflozin 25 mg tablet 25 mg PO DAILY 01/01/22 08/13/23 (Jardiance) atorvastatin 10 mg tablet (Lipitor) 10 mg PO DAILY 07/27/23 08/13/23 Previous Rx's Medication Instructions Recorded tramadol 50 mg tablet 50 mg PO Q8H PRN pain #20 tabs 07/29/23 Allergies Allergy/AdvReac Type Severity Reaction Status Date / Time acetaminophen [From LORTAB] Allergy Unknown Verified 07/29/23 08:14 hydrocodone [From LORTAB] Allergy Unknown Verified 07/29/23 08:14 Penicillins [PENICILLINS] Allergy Unknown Verified 07/29/23 08:14 Sulfa (Sulfonamide Allergy Unknown Verified 07/29/23 08:14 Antibiotics) [SULFA (SULFONAMIDE ANTIBIOTICS)] [facility] Disclaimer: The information contained in this section may have been updated after the patient was seen, as this information can be updated by other users. Medical History Tinnitus, bilateral Diabetes mellitus Bilateral tinnitus Family History Other No significant family history Social History Smoking Status: Never smoker second hand exposure: No alcohol intake: never substance use type: denies use current occupational status: retired Travel in the last 8 weeks: None household members: spouse housing: house current occupational exposures/hazards: No caffeine: Yes ROS Obtained: Yes All systems reviewed & no additional complaints except as documented Physical Exam General General appearance: alert, in no apparent distress and obese Head Head exam: atraumatic and normocephalic Eye Eye exam: Present normal appearance, PERRL and EOMI ENT ENT exam: Present normal exam, normal oropharynx, mucous membranes moist and normal external ear exam Neck Neck exam: Present normal inspection, full ROM and trachea midline; Absent tenderness Chest Chest inspection: Present normal inspection and symmetric chest wall rise; Absent tenderness Respiratory Respiratory exam: Present normal lung sounds bilaterally; Absent respiratory distress, wheezes, stridor or accessory muscle use Cardiovascular Cardiovascular exam: Present regular rate and normal rhythm Abdominal Exam Abdominal exam: Present soft; Absent distention, tenderness or guarding Extremities Exam Extremities exam: Present normal inspection, full ROM and normal capillary refill; Absent tenderness or edema Back Exam Back exam: Present normal inspection and full ROM; Absent tenderness Neurological Exam Neurological exam: Present alert, oriented X3, CN II-XII intact and normal gait; Absent motor sensory deficit Psychiatric Psychiatric exam: Present normal affect and normal mood Skin Skin exam: Present warm and dry Medical Decision Making Medical Records Medical records reviewed: Yes I reviewed the patient's medical records. Sammy Inquiry Pt receiving controlled substance: No Vital Signs: 09/14/23 12:30 09/14/23 13:00 09/14/23 14:00 Temperature Temperature Source Pulse Rate 91 H 89 Pulse Rate [Right Brachial] 105 H Respiratory Rate 18 Blood Pressure 166/82 H 160/80 H Blood Pressure [Right Arm] 184/92 H Blood Pressure Mean 130 Blood Pressure Mean [Right Arm] 122 Blood Pressure Source Blood Pressure Position 02 Sat by Pulse Oximetry 99 96 98 Oxygen Delivery Method Room Air Room Air 09/14/23 14:30 09/14/23 15:15 09/14/23 15:33 Temperature 98.1 F Temperature Source Oral Pulse Rate 94 H 86 89 Pulse Rate [Right Brachial] Respiratory Rate 16 Blood Pressure 174/91 H 150/82 H 150/82 H Blood Pressure [Right Arm] Blood Pressure Mean Blood Pressure Mean [Right Arm] Blood Pressure Source Automatic Cuff Blood Pressure Position Sitting 02 Sat by Pulse Oximetry 97 96 Oxygen Delivery Method Room Air Lab Data Lab results reviewed: Yes I reviewed the patient's lab results. Lab Results 09/14/23 12:45: WBC 7.7, RBC 3.94 L, Hgb 12.9, Hct 36.3 L, MCV 92.2, MCH 32.8 H, MCHC 35.6 H, RDW 13.8, Plt Count 329, MPV 8.4, Neut % (Auto) 55.2, Lymph % (Auto) 35.8, Sanders % (Auto) 6.3, Eos % (Auto) 2.2, Baso % (Auto) 0.6, Neut # (Auto) 4.3, Lymph # (Auto) 2.8, Sanders # (Auto) 0.5, Eos # (Auto) 0.2, Baso # (Auto) 0.0, Sodium 142, Potassium 4.7, Chloride 109 H, Carbon Dioxide 28, Anion Gap 9.7, BUN 28 H, Creatinine 1.20 H, Estimated Creat Clear 41, Estimated GFR 43 L, Est GFR ( Amer) 52 L, Glucose 166 H, Calcium 9.5, Magnesium 2.1, Total Bilirubin 0.2, AST 32, ALT 32, Alkaline Phosphatase 55, Troponin I < 0.01, Total Protein 7.5, Albumin 4.3, Globulin 3.2, Albumin/Globulin Ratio 1.3, TSH 1.37, Thyroxine (T4) 8.7 09/14/23 14:50: Troponin I < 0.01 09/14/23 15:21: Urine Color Yellow, Urine Appearance Clear, Urine pH 7.0, Ur Specific [place] 1.010, Urine Protein Negative, Urine Glucose (UA) 3+, Urine Ketones Negative, Urine Blood Negative, Urine Nitrate Negative, Urine Bilirubin Negative, Urine Urobilinogen 0.2, Ur Leukocyte Esterase Negative, Urine RBC None, Urine WBC None, Ur Squamous Epith Cells None, Urine Bacteria None 09/14/23 12:45 09/14/23 12:45 Orders (Tests/Meds): ED MEDICATIONS Discontinued Medications Generic Name Dose Route Start Last Admin Trade Name Freq PRN Reason Stop Dose Admin Lactated Ringer's 1,000 mls @ 999 mls/hr 09/14/23 13:16 09/14/23 13:31 Lactated Ringer's 1000 Ml Bag IV 09/14/23 14:16 999 mls/hr .Q1H1M ONE Administration Iopamidol 200 ml 09/14/23 13:36 09/14/23 13:38 Iopamidol-370 (76%);100ml Bottle IV 09/14/23 13:37 200 ml ONCE ONE Administration Sodium Chloride 100 ml 09/14/23 13:36 09/14/23 13:37 0.9 % Sodium Chloride 50 Ml Vial IV 09/14/23 13:37 100 ml ONCE ONE Administration Sodium Chloride 10 ml 09/14/23 13:36 09/14/23 13:38 Sodium Chloride 0.9% 10ml Syr (Rad Only) IV 09/14/23 13:37 10 ml ONCE ONE Administration ORDERS Category Date Time Status CT angio head Stat Cat Scan 09/14/23 12:[address] angio neck Stat Cat Scan 09/14/23 12:[address] head/brain wo con Stat Cat Scan 09/14/23 12:52 Completed CTA Chest [CT angio chest PE protocol] Stat Cat Scan 09/14/23 12:52 Completed CBC w/Auto Diff [Complete Blood Count Auto Diff] Stat Lab 09/14/23 12:45 Completed CMP [Comprehensive Metabolic Panel] Stat Lab 09/14/23 12:45 Completed MAG [Magnesium] Stat Lab 09/14/23 12:45 Completed T4 (Thyroxine) Stat Lab 09/14/23 12:45 Completed TSH [Thyroid Stimulating Hormone] Stat Lab 09/14/23 12:45 Completed Trop I [Troponin I] Stat Lab 09/14/23 12:45 Completed Troponin I Q3H Lab 09/14/23 14:50 Completed UA [Urinalysis and Microscopic] Stat Lab 09/14/23 15:21 Completed ECG Data Tracing #1: I reviewed this ECG and interpreted as documented below: Sinus rhythm with first-degree AV block with a ventricular rate of 88 bpm. RI interval is [address] changes concerning for ischemia. Right bundle branch block noted. ECG initial impression date: 09/14/23 ECG initial impression time: 13:11 Medical Decision Narrative: In summary, this patient is a 82-year-old female presenting to the Emergency Department for evaluation of palpitations, lightheadedness, thick feeling in her tongue, dry mouth, and difficulty talking. Differential diagnoses considered include but are not limited to anxiety, panic attack, CVA, dysrhythmia, hypoglycemia. Ruling out the most morbid conditions drove assessment. On exam, the patient is resting comfortably in bed in no acute distress. Vitals are reassuring. Her NIH stroke scale is 0, as she has no local neurologic deficits. Cardiopulmonary exam is reassuring. Fingerstick blood glucose is normal. Workup included stroke CT scans as well as CT PE to evaluate for potential cause of the patient's sudden onset and presyncope, palpitations, and dry mouth, though I feel it is likely related to anxiety based on history and presentation. Basic lab evaluation and EKG also obtained. I independently interpreted CT scan prior to the radiologist read and noted no obvious large stroke and no obvious PE. Please see their read for final interpretation. Labs were obtained that demonstrated patient may be a little bit dry with mildly elevated creatinine and BUN. She was given a bolus of IV fluids here and is making good urine. Labs otherwise reassuring. On reassessment, patient is resting comfortably with resolved symptoms. She is feeling a lot better with some rest and fluids. She states she is been under a lot of stress taking care of her . At 1430, patient was placed in ED observation status pending second troponin to determine whether or not the patient would be appropriate for discharge versus admission. The patient was provided serial reevaluations and cardiac monitoring while awaiting ultimate disposition. Patient's second troponin came back negative. Given reassuring workup and exam, it is felt that the patient is appropriate for discharge at 1530. Total ED observation time was 1 hour. Patient was given a strict return precautions and instructions for close follow-up with her primary care provider Critical Care Critical Care Time Critical Care Time: No
[2023-09-14 13:06] LABS: Chloride 109 mmol/L (98-107)
[2023-09-14 13:07] LABS: Potassium 4.7 mmoL/L (3.5-5.1); Sodium 142 mmol/L (136-145)
[2023-09-14 13:09] LABS: Alanine Aminotransferase 32 U/L (12-78); Albumin Level 4.3 g/dl (3.5-5.0); Albumin/Globulin Ratio 1.3 (1.1-1.8); Alkaline Phosphatase 55 U/L (38-126); Anion Gap 9.7 mEq/L (5-15); Aspartate Amino Transferase 32 U/L (14-36); Bilirubin,Total 0.2 mg/dl (0.2-1.3); Blood Urea Nitrogen 28 mg/dl (7-17); Calcium 9.5 mg/dl (8.4-10.2); Carbon Dioxide 28 mmol/L (22.0-30.0); Creatinine Clearance Estimated 41 mL/min (50-200); Estimated Glomerular Filt Rate 43 ml/min (>60); GFR (African American) 52 ML/MIN (>60); Globulin 3.2 g/dL (1.3-3.2); Glucose 166 mg/dl (74-100); Total Protein,Serum 7.5 g/dl (6.3-8.2)
[2023-09-14 13:10] LABS: Magnesium 2.1 mg/dl (1.6-2.3)
--- NOTE | 2023-09-14 13:10 | ECG_ITS ---
APPROVED REPORT Exam: Resting ECG HR:88 bpm ECG Measurements Heart Rate 88 AXES IA 232 P 73 QRSd 153 QRS 1 QT 381 T 61 QTc 426 Conclusion SINUS RHYTHM WITH FIRST DEGREE AV BLOCK RIGHT BUNDLE BRANCH BLOCK [120+ ms QRS DURATION, UPRIGHT V1, 40+ ms S IN I/aVL/V4/V5/V6] ABNORMAL ECG Electronically signed by : SHELLIE JARRELL, 09/14/2023 16:56:18
[2023-09-14 13:25] LABS: Troponin I < 0.01 ng/ml (0.00-0.034)
[2023-09-14 13:27] LABS: T4 (Thyroxine) 8.7 ug/dl (5.53-11.0)
[2023-09-14] MEDS: LACTATED RINGERS 1000ML 1,000 ML 999 ML IV (13:31)
[2023-09-14] MEDS: 0.9 % SODIUM CHLORIDE 50 ML VIAL 100 ML IV (13:37)
[2023-09-14] MEDS: SODIUM CHLORIDE 0.9% 10ML SYR (RAD ONLY) 10 ML IV (13:38)
[2023-09-14] MEDS: IOPAMIDOL-370 (76%);100ML BOTTLE 200 ML IV (13:38)
[2023-09-14 13:41] LABS: Thyroid Stimulating Hormone 1.37 uIU/mL (0.465-4.68)
--- NOTE | 2023-09-14 13:48 | PC.NURSE ---
PT returned from CT
[2023-09-14 14:00] VITALS: BP 160/80; PULSE 89; O2SAT 98
[2023-09-14 14:30] VITALS: BP 174/91; PULSE 94; O2SAT 97
--- NOTE | 2023-09-14 14:53 | PC.NURSE ---
repeat trop sent, pt assisted to br
[2023-09-14 15:15] VITALS: BP 150/82; PULSE 86; O2SAT 96
[2023-09-14 15:21] LABS: Troponin I < 0.01 ng/ml (0.00-0.034)
[2023-09-14 15:33] VITALS: BP 150/82; PULSE 89; RESP 16; TEMP 36.7; O2SAT 94
[2023-09-14 15:42] LABS: Microscopic, Urine URINE MICROSCOPIC (MICROSCOPIC)
[2023-09-14 15:44] LABS: Appearance,Urine CLEAR (Clear); Bilirubin,Urine Negative (Negative); Blood, Urine Negative (Negative); Color,Urine YELLOW (Yellow); Glucose,Urine (UA) 3+ (Negative); Ketones,Urine Negative (Negative); Leukocyte Esterase,Urine Negative (Negative); Nitrate,Urine Negative (Negative); Protein,Urine Negative (Negative); Urobilinogen,Urine 0.2 EU/dl (0.2)
== END 2023-09-14 15:43 | disposition home or self-care (01) ==
PROVIDERS: Emergency Provider Emergency Medicine; PCP Internal Medicine Adolescent Medicine
DX: R00.2 Palpitations (principal); I44.0 Atrioventricular block, first degree; I45.10 Unspecified right bundle-branch block; R42 Dizziness and giddiness; R68.2 Dry mouth, unspecified; E11.9 Type 2 diabetes mellitus without complications; E03.9 Hypothyroidism, unspecified; E78.5 Hyperlipidemia, unspecified; Z79.4 Long term (current) use of insulin; Z79.84 Long term (current) use of oral hypoglycemic drugs; Z79.85 Long-term (current) use of injectable non-insulin antidiabetic drugs
CPT/HCPCS: 70450; 70496; 70498; 71275; 80053; 81001; 83735; 84436; 84443; 84484; 85025; 93005; 96360; 99285; J7120; Q9967

== ENCOUNTER 2024-05-06 13:10 | Outpatient (CLI) | payer MEDICARE, BC, SELFPAY ==
--- NOTE | 2024-05-06 13:16 | XR_ITS ---
FINAL REPORT CLINICAL HISTORY: SOA COMPARISON: 11/21/2020 FINDINGS: CHEST 2 VIEWS PA AND LATERAL The heart is in the upper limits of normal in size. The mediastinum is unremarkable. There are mild chronic changes of both lungs. There is no pneumothorax. IMPRESSION: No acute process. Reviewed, Interpreted and Dictated by Dilip Wilkerson MD Transcribed by Jonelle Goldstein Authenticated and [facility]
== END 2024-05-06 23:59 | disposition home or self-care (01) ==
LOC: RAD 13:11
PROVIDERS: PCP Nurse Practitioner Family; Visit Provider Nurse Practitioner Family
DX: R05.3 Chronic cough (principal); R06.02 Shortness of breath
CPT/HCPCS: 71046

== ENCOUNTER 2024-06-06 13:28 | Outpatient (CLI) | payer MEDICARE, BC, SELFPAY ==
--- NOTE | 2024-06-06 13:32 | XR_ITS ---
FINAL REPORT CLINICAL HISTORY: SCREENING COMPARISON: None FINDINGS: Using L1-4, the bone mineral density of the spine is 1.160 g/cm2, corresponding to T-score of 1.0, within normal limits. Using the left hip, the bone mineral density of the total hip is 0.895 g/cm2, corresponding to a T-score of -0.4, within normal limits. Using the right hip, the bone mineral density of the femoral neck is 0.846 g/cm2, corresponding to a T-score of 0.0, within normal limits. FRAX not reported because all T-scores at or above-1.0. NOTE: T-score: Standard deviation compared with peak bone mass of young adult mean. *Following the recommendations of the International Society of Bone densitometry, classification of hip BMD is based on the lower of two T-scores; total hip or femoral neck. IMPRESSION: Normal bone mineral density of the lumbar spine and hips. Reviewed, Interpreted and Dictated by Dilip Wilkerson MD Transcribed by Cyndi Garcia Authenticated and . [facility]
--- OUTSIDE RECORDS SUMMARY | 2024-06-06 13:32 | XMS_ITS | Data Portability ---
Author Organization [facility] Address [address] [place] [address] Assessment No assessment recorded. Plan of Treatment Reminders Order Date Submit Date Provider Last Modified By Organization Details Last Modified Time Details Appointments None record ed. Lab None record ed. Referral None record ed. Procedures None record ed. Surgeries None record ed. Imaging None record ed. Medication Orders None record ed. Patient TargetsNo targets recorded. Patient InstructionsNo instructions recorded. Reason for Referral None Reported. Results Created Date Observation Date Name Description Value Unit Range Abnormal Flag Note LastModifiedBy Organization Detail LastModifiedTime 02/01/20 22 01/28/2022 audio gram No observ ation record ed. BARCODE Not Available 2021 11:24:07 Result Notes None recorded. Problems Name Problem SNOMED Code Status Onset Date Resolution Date Notes Provider Name and Address Organization Details Recorded Time Bilateral tinnitus 65462853503 02 Active 2014 From Automated Load;Prov ider: Nicole Blackwell tatus: Active Not Available [facility] 6 07:53:38 Hearing loss 71067392 Active 2014 From Automated Load;Prov ider: Eddy Blackwell;Alex tatus: Active Not Available [facility] 6 07:53:38 Eustachia n tube disorder 77257590 Active 2014 From Automated Load;Prov ider: Eddy Blackwell;Alex tatus: Active Not Available [facility] 6 07:53:38 Deviated nasal septum 275830613 Active 2014 From Automated Load;Prov ider: Eddy Blackwell;S tatus: Active Not Available [facility] 6 07:53:38 Obstructi ve sleep apnea syndrome 68220758 Active 2014 Provider: Nicole Blackwell: Active Not Available [facility] 6 07:53:38 Problem Notes None recorded. Procedures Surgical History Date Name Laterality Status Provider Name and Address Organization Details Recorded Time 01/28/2022 Audiogram completed LUIS ALBERTO KING, AUD [address] [place], [address], [facility] 01/28/2022 12:13:29 Imaging Results Imaging Date Name Status LastModified by Organiz ation Details LastModified Time 01/28/2022 audiogram completed BARCODE Information no t available 01/31/2022 11:24:07 Procedure Notes None recorded. Medical Equipment None Reported. Allergies Allergen ID Allergen Name Allergen Category Reaction Reaction Severity Criticality Documentation Date Start Date Code Code System Note Provider Name and Address Organization Details Recorded Time 854748 Substance with sulfonami de structure and antibacte rial mechanism of action (substanc e) medicatio n Not available Not available Not available 01/18/20162004 66037 8003 SNOMED Comme nt: Creat ed By: Wendy Agarwal jose Date: 3:18: 37 PM; Not Available [facility] 6 02:54:37 [id number] Product containin g penicilli n (product) medicatio n Not available Not available Not available 01/18/20162004 11111 8001 SNOMED Comme nt: Creat ed By: Wendy Whitea jose Date: 3:18: 16 PM; Not Available [facility] 6 06:07:16 Medications Name Sig Start Date Stop Date Status Note LastModified by Organization Details LastModified Time metformin 500 mg tablet Two times a day active Frequency: bid;Alt Frequency: with food;Medica tion Description : metformin; Dosage:1; Route:oral; refills:5; Quantity:60 tablet Not Available Not Available Not Available simvastatin active Medicati on Description : simvastatin ; Route:oral; refills:0 Not Available Not Available Not Available Synthroid Daily active Frequency: daily;Medic ation Description : levothyroxi ne; Dosage:1; refills:0; Quantity:30 Not Available Not Available Not Available cetirizine active Medicatio n Description : cetirizine; Route:oral; refills:0 Not Available Not Available Not Available duloxetine active Medicatio n Description : duloxetine; Route:oral; refills:0 Not Available Not Available Not Available Victoza 3-Jesse 0.6 mg/0.1 mL (18 mg/3 mL) subcutaneou s pen injector active Instruction s: prefilled pen;Medicat ion Description : liraglutide ; Route:subcu taneous; refills:0 Not Available Not Available Not Available Farxiga 10 mg tablet active Medication Description : dapaglifloz in; Route:oral; refills:0 Not Available Not Available Not Available Vitals None Recorded Social History None recorded. Functional Status None recorded. Mental Status None recorded. Family History Nothing Reported. Medical History No medical history recorded. Gynecological HistoryNo gynecological history recorded. Obstetrics History GPAL:G 0 P 0 0 0 0 Past Encounters Encounter ID Performer Location Encounter Start Date Encounter Closed Date Diagnosis/Indication Diagnosis SNOMED-CT Code Diagnosis ICD10 Code Diagnosis Note [id number] DAVID GARZA [facility] CL[facility] [address] [address] 01/28/2022 10:58:54 01/28/2022 13:46:01 Sensorineural hearing loss of bilateral ears 309990585 H90.3 Bilateral tinnitus 38852 26683 102 H93.13 [id number] DAVID GAR[facility] [address] [place] [address] 02/18/2022 13:48:57 02/18/2022 14:24:01 [id number] DAVID GARZA [facility] [address] [place] [address] 03/03/2022 13:37:36 03/03/2022 14:28:57 [id number] DAVID GARZA [facility] [address] [place] [address] 03/13/2022 15:20:14 03/13/2022 16:09:08 [id number] LUIS ALBERTO RAMANA R[place], AUD [place] [facility] [address] [place] [address] 03/31/2022 14:31:23 03/31/2022 15:23:38 [id number] LUIS ALBERTO RAMANA RUTLEDGE, AUD [place] [facility] [address] [place] [address] 04/16/2022 12:39:47 04/16/2022 13:33:39 [id number] LUIS ALBERTO RAMANA RUTLEDGE, AUD [place] [facility] [address] [place] [address] 08/06/2022 12:38:39 08/06/2022 13:31:00 Health Concerns Section Related Observation LastModified by Organization Detai ls LastModified Time None Recorded Concern Status LastModified by Organization Details LastModified Time None Recorded Advance Directives Directive None Recorded Payers Encounter Date Sequence Insurance Name Policy Number Policy Ansari Covered Member ID Ansari Member ID Guarantor Name 03/03/2022 1 [place] F [place] [id number] 1 Amber F [place] 03/03/2022 2 [place] [id number] Amber F [place] [id number] Amber F [place] 03/13/2022 1 [place] [id number] Amber F [place] 03/13/2022 2 [id number] Amber F [place] [id number] Amber F [place] 03/31/2022 1 [place] F [place] [id number] Amber F [place] 03/31/2022 2 [id number] Amber F [place] [id number] Amber F [place] 04/16/2022 1 [place] Amber F [place] [id number] 1 Amber F [place] 04/16/2022 2 [id number] Amber F [place] [id number] Amber F [place] 08/06/2022 1 [place] F [place] [id number] 1 Amber F [place] 08/06/2022 2 [id number] Amber F [place] [id number] Amber F [place] OBGyn Episode No OBEpisode recorded.
--- NOTE | 2024-06-06 13:51 | CA_ITS ---
APPROVED REPORT EXAM: Comprehensive 2D, Doppler, and color-flow Echocardiogram [employer] Manager: Karen Mendoza RT(R) Ht: 5 ft 1 in Wt: 164lbs BSA: 1.74 BP: 130/80 mmHg Indications: edema, murmur, fatigue, HTN, DM, RUGGIERO, hyperlipidemia, asthma 2D Dimensions LA Volume 53.90 mL LA Volume Index 30.98 mL/m2 (M/F) 16-34 EF AP4 45.60 % GL Strain -13.3 % M-Mode Dimensions RVDd 3.18 cm (0.9-2.6) LA Diam 4.08 cm (1.9-4.0) LVDd 5.00 cm (3.5-5.7) LVDs 3.90 cm (3.5-5.7) IVSd 0.72 cm (0.6-1.1) PWd 0.95 cm (0.6-1.1) EF (Teich) 44.20% FS 22.00% EDV (Teich) 118.20 mL TAPSE 1.75 (<1.7) ESV (Teich) 65.90 mL LV Diastology E Decel Time 210 (160-240 msec) E/A Ratio 1.9 Mitral Valve MV E Max Shivam. 104.0 (40-130 cm/s) MV A Velocity 54.0 (40-130 cm/s) E/A Ratio 1.94 MV PHT 62.0 ms Tricuspid Valve TR P. Velocity 343.00 cm/s RAP Estimate 10.00 mmHg RVSP 57.10 mmHg Left Ventricle The left ventricle is normal size. The left ventricular systolic function is normal. The left ventricular ejection fraction is within the normal range. There is increased LV wall thickness. There is normal LV segmental wall motion. Transmitral Doppler flow pattern suggests impaired LV relaxation. LVEF is 55%. Right Ventricle Right ventricle is mildly dilated. The right ventricular systolic function is normal. Atria Left atrium is mildly dilated. Right atrium is mildly dilated. There is no Doppler evidence of interatrial shunt. Aortic Valve Aortic valve is mildly thickened. Trace aortic regurgitation. There is no aortic valvular stenosis. Mitral Valve The mitral valve leaflets are mildly thickened. No evidence of mitral valve stenosis. Mild mitral regurgitation. Tricuspid Valve Tricuspid valve is grossly normal in structure and function. Mild tricuspid regurgitation. RVSP is 45-50 mmHg. Pulmonic Valve The pulmonary valve is normal in structure. Trace pulmonic regurgitation. Great Vessels The aortic root is normal in size. IVC is normal in size and collapses >50% with inspiration. Pericardium There is no pericardial effusion. Other Information Study Quality: Fair Conclusion Normal biventricular systolic function. Mild RV dilation. Mild biatrial dilation. Mild MR, mild TR. Elevated RVSP 45-50 mmHg. Electronically signed by : Alisha Shi MD 06/07/2024 13:10:08
== END 2024-06-06 23:59 | disposition home or self-care (01) ==
LOC: RAD 13:30
PROVIDERS: PCP Nurse Practitioner Family; Visit Provider Nurse Practitioner Family
DX: I08.1 Rheumatic disorders of both mitral and tricuspid valves (principal); I11.9 Hypertensive heart disease without heart failure; Z13.820 Encounter for screening for osteoporosis; E78.5 Hyperlipidemia, unspecified; E11.9 Type 2 diabetes mellitus without complications; J45.909 Unspecified asthma, uncomplicated
CPT/HCPCS: 77080; 93306

== ENCOUNTER 2024-07-01 12:50 | Outpatient (CLI) | payer MEDICARE, BC, SELFPAY ==
--- OUTSIDE RECORDS SUMMARY | 2024-07-01 12:52 | XMS_ITS | Data Portability ---
Author Organization [facility] Address [address] [place] [address] Assessment No assessment recorded. Plan of Treatment [...] Address Organization Details Recorded Time Bilateral tinnitus 12512091514 02 Active 2014 From Automated Load;Prov ider: Nicole Blackwell tatus: Active Not Available [facility] 6 07:53:38 Hearing loss 49946650 Active 2014 From Automated Load;Prov ider: Eddy Blackwell;Alex tatus: Active Not Available [facility] 6 07:53:38 Eustachia n tube disorder 96020964 Active 2014 From Automated Load;Prov ider: Eddy Blackwell;Alex tatus: Active Not Available [facility] 6 07:53:38 Deviated nasal septum 959168580 Active 2014 From Automated Load;Prov ider: Eddy Blackwell;S tatus: Active Not Available [facility] 6 07:53:38 Obstructi ve sleep apnea syndrome 89537733 Active 2014 Provider: Nicole Blackwell: Active Not Available [facility] 6 07:53:38 Problem Notes None recorded. Procedures Surgical History Date Name Laterality Status Provider Name and Address Organization Details Recorded Time 01/28/2022 Audiogram completed LUIS ALBERTO KING, AUD [address] [place], [address], [facility] 01/28/2022 12:13:29 Imaging Results Imaging Date Name Status LastModified by Organiz ation Details LastModified Time 01/28/2022 audiogram completed [facility] Information no t available 01/31/2022 11:24:07 Procedure Notes None recorded. Medical Equipment None Reported. Allergies Allergen ID Allergen Name Allergen Category Reaction Reaction Severity Criticality Documentation Date Start Date Code Code System Note Provider Name and Address Organization Details Recorded Time 325798 Substance with sulfonami de structure and antibacte rial mechanism of action (substanc e) medicatio n Not available Not available Not available 01/18/20162004 37316 8003 SNOMED Comme nt: Creat ed By: Wendy Agarwal jose Date: 3:18: 37 PM; Not Available [facility] 6 02:54:37 [id number] Product containin g penicilli n (product) medicatio n Not available Not available Not available 01/18/20162004 41432 8001 SNOMED Comme nt: Creat ed By: Wendy Whitea jose Date: 3:18: 16 PM; Not Available [facility] 6 06:07:16 Medications Name Sig Start Date [...] SNOMED-CT Code Diagnosis ICD10 Code Diagnosis Note [id number] DAVID GARZA [facility] CLOSED [address] [address] 01/28/2022 10:58:54 01/28/2022 13:46:01 Sensorineural hearing loss of bilateral ears 930491023 H90.3 Bilateral tinnitus 08360 54417 102 H93.13 [id number] DAVID GARZA [address] [place] [address] 02/18/2022 13:48:57 02/18/2022 14:24:01 [id number] DAVID GARZA [facility] [address] [place] [address] 03/03/2022 13:37:36 03/03/2022 14:28:57 [id number] DAVID GARZA [facility] [address] [place] [address] 03/13/2022 15:20:14 03/13/2022 16:09:08 [id number] LUIS ALBERTO YBARRAGABBY AAMIR, AUD [place] [facility] [address] [place] [address] 03/31/2022 14:31:23 03/31/2022 15:23:38 [id number] LUIS ALBERTO RAMANA AAMIR, AUD [place] [facility] [address] [place] [address] 04/16/2022 12:39:47 04/16/2022 13:33:39 [id number] LUIS ALBERTO RAMANA AAMIR, AUD [place] [facility] [address] [place] [address] 08/06/2022 12:38:39 08/06/2022 13:31:00 Health Concerns Section Related Observation LastModified by Organization Detai ls LastModified Time None Recorded Concern Status LastModified by Organization Details LastModified Time None Recorded Advance Directives Directive None Recorded Payers Insurance Date Sequence Insurance Name Policy Number Policy Ansari Covered Member ID Ansari Member ID Guarantor Name 08/03/2022 1 [place] Amber Eduardo [id number] Amber Eduardo 08/03/2022 2 [place] [id number] Amber Eduardo [id number] Amber Eduardo OBGyn Episode No OBEpisode recorded.
[2024-07-01 14:05] VITALS: PULSE 60; PULSE 64
[2024-07-01] MEDS: ALBUTEROL 0.083% 2.5 MG/3 ML NEB IH (14:05)
--- NOTE | 2024-07-01 14:42 | CT_ITS ---
FINAL REPORT TECHNIQUE: Axial images were obtained through the chest without contrast. Sagittal and coronal reconstructions were performed. This study was performed with techniques to keep radiation doses as low as reasonably achievable (ALARA). Individualized dose reduction techniques using automated exposure control or adjustment of mA and/or kV according to the patient's size were employed. CLINICAL HISTORY: SOA x 2 WEEKS, PERIPHERAL EDEMA, ENLARGED RT VENTRICLE COMPARISON: Prior CTA of the chest 09/14/2023 FINDINGS: CT CHEST: No mediastinal, hilar, or axillary adenopathy is noted. The heart size is normal. There is no pericardial or pleural effusion. Limited images of the upper abdomen are remarkable for small bilateral adrenal nodules, measuring up to 1.9 cm in the right adrenal gland, stable and consistent with adrenal adenomas. Several noncalcified parenchymal nodules are noted. There is a 4 mm nodule in the anterior right lung, best seen on image #45 of series 2, stable when compared to the prior exam. There is a 5 mm right middle lobe nodule best seen on image #47 of series 2, that appears larger than that seen on the previous exam. There is a 3 mm anterior left lower lobe nodule best seen on image #51 of series 2, stable. IMPRESSION: Several noncalcified parenchymal nodules are noted, as described above. 2 of the nodules are stable, however the third 5 mm right middle lobe nodule appears larger than seen on the prior exam. Recommend a 3-month follow-up chest CT for further evaluation. Reviewed, Interpreted and Dictated by Dilip Wilkerson MD Transcribed by Rosa Ghosh Authenticated and [facility]
== END 2024-07-01 23:59 | disposition home or self-care (01) ==
LOC: RT 12:50
PROVIDERS: PCP Nurse Practitioner Family; Visit Provider Nurse Practitioner Family
DX: I51.7 Cardiomegaly (principal); R91.8 Other nonspecific abnormal finding of lung field
CPT/HCPCS: 71250; 94060; 94640; 94726; 94729

== ENCOUNTER 2024-10-03 13:42 | Outpatient (CLI) | payer MEDICARE, BC, SELFPAY ==
--- NOTE | 2024-10-03 13:44 | XR_ITS ---
FINAL REPORT CLINICAL HISTORY: right hip pain COMPARISON: 10/09/2022 FINDINGS: RIGHT HIP Two views of the right hip demonstrate no acute fracture or dislocation. There are severe degenerative changes of the right hip. No lytic lesions identified. No soft tissue abnormality is seen. IMPRESSION: Degenerative changes without acute bony abnormality. Reviewed, Interpreted and Dictated by Siomara Martins MD Transcribed by Cyndi Garcia Authenticated and [facility]
== END 2024-10-03 23:59 ==
LOC: RAD 13:44
PROVIDERS: Visit Provider Orthopaedic Surgery
DX: M25.551 Pain in right hip (principal); M16.11 Unilateral primary osteoarthritis, right hip
CPT/HCPCS: 73502

== ENCOUNTER 2024-10-07 10:40 | Outpatient (CLI) | payer MEDICARE, BC, SELFPAY ==
[2024-10-07 07:55] VITALS: BMI 29.4
--- OUTSIDE RECORDS SUMMARY | 2024-10-07 10:44 | XMS_ITS | Clinical Summary ---
Author Organization [facility] Address [address] [place] [address] Care Team Providers Care Seaman Name Role Phone Andi Garvin MD Primary Care Provider + [phone] Allergies Active Allergy Reactions Criticality Noted Date Comments Hydrocodone-Acetaminoph en Other - please document in the comment field Low 03/30/2017 N/V Penicillins Anaphylaxis,Shortnes s of breath High 03/30/2017 HEAVY CHEST AND SOA Sulfa Drugs Itching,Rash Medium 03/30/2017 RASH AND ITCHING Medications meloxicam (Mobic) 7.5 MG tablet 1 Active diazePAM (Valium) 5 MG tablet 1 Active celecoxib (CeleBREX) 200 MG capsule 2 Active atorvastatin (Lipitor) 10 MG tabletIndication s:Type 2 diabetes mellitus with other specified complication, with long-term current use of insulin (CMS/[facility]) Take 1 tablet (10 mg total) by mouth 1 (one) time each day. 90 tablet 1 3 Active insulin glargine (Basaglar KwikPen) 100 UNIT/ML injection penIndications:T ype 2 diabetes mellitus with other specified complication, with long-term current use of insulin (CMS/HCC) Inject 22u daily plus titration as advised 20 mL 1 3 Active Insulin Pen Needle (Pen [place] 05/08 ) 31G X 5 MM miscIndications: Type 2 diabetes mellitus with other specified complication, with long-term current use of insulin (CMS/HCC) Use once daily 90 each 3 3 Active glucose blood test strip 1-2x/day, Please provide strips compatible with patient's meter and insurance 180 each 3 3 Active levothyroxine (Synthroid, Levoxyl) 100 MCG tabletIndication s:Hypothyroidism , unspecified type Take 1 tablet (100 mcg total) by mouth 1 (one) time each day. 90 tablet 3 3 Active Jardiance 25 MGIndications:Ty pe 2 diabetes mellitus with other specified complication, with long-term current use of insulin ([facility]) TAKE 1 TABLET BY MOUTH ONCE A DAY 90 tablet 1 3 Active Trulicity 4.5 MG/0.5ML inj. pen INJECT THE CONTENTS OF 1 PEN UNDER THE SKIN ONCE WEEKLY 6 mL 1 4 Active Active Problems Problem Noted Date Diagnosed Date Elevated blood pressure reading 07/02/2022 Chronic kidney disease 03/18/2022 Overweight (BMI 25.0-29.9) 03/18/2022 Nephropathy 12/09/2021 Hyperlipidemia 03/13/2021 Hypothyroidism 07/08/2018 Type 2 diabetes 07/07/2018 Overview (11/25/2021): Regulatory Update November 2021 Eustachian tube disorder 02/06/2015 Obstructive sleep apnea syndrome 02/06/2015 Family History Medical History Relation Name Comments Other cancer Brother Stroke Mother Other cancer Sister Relation Name Status Comments Brother Mother Sister Social History Tobacco Use Types Packs/Day Years Used Date Smoking Tobacco: Never Smokeless Tobacco: Never Tobacco Cessation:Counseling Given: Not Answered Alcohol Use Standard Drinks/Week Comments No 0 (1 standard drink = 0.6 oz pur e alcohol) Comments Unknown Sex and Gender Information Value Date Recorded Sex Assigned at Not on file Legal Sex Female 7:28 PM EDT Gender Identity Not on file Sexual Orientation Not on file Last Filed Vital Signs Vital Sign Reading Time Taken Comments Blood Pressure 150/79 07/02/2022 1:02 PM EDT Pulse 68 07/02/2022 12:26 PM EDT Temperature 36.6 C (97.8 F) 07/09/2020 1:37 PM EDT Respiratory Rate - - Oxygen Saturation - - Inhaled Oxygen Concentration - - Weight 68.5 kg (151 lb 0.2 oz) 07/02/2022 12:26 PM EDT Height 154.9 cm (5' 1 ) 07/02/2022 12:26 PM EDT Body Mass Index 28.53 07/02/2022 12:26 PM EDT Plan of Treatment Health Maintenance Due Date Last Done Comments [facility]-Bone Density Scan 1942 [facility]-Depression Screening 1942 [facility]-Medicare Annual Wellness (AWV) 1942 [facility]-Infant/Child/Adol SDOH Screenings 1942 Diabetes: Dental Exam 1952 [facility]- SDOH Screenings 1960 [facility]-Adult SDOH Screenings 1960 [facility]-Pneumococcal Vaccine: 50+ Years (1 of 2 - PCV) 1961 [facility]-Zoster Vaccines (1 of 2) 1992 [facility]-DTaP,Tdap,and Td Vaccines (1 - Tdap) 05/01/1996 04/30/1996 [facility]-RSV Vaccine: 60+ Years or (1 - 1-dose 75+ series) 2017 [facility]-Diabetes: Hemoglobin A1C 12/30/2022 07/02/2022, 03/18/2022, 12/09/2021, Additional history exists [id number] Vaccine ( - 2023- season) 2023 [facility]-Influenza Vaccine (#1) 2024 [facility]-Hepatitis A Vaccines Aged Out 02/03/2018 No longer eligible based on patient's age to complete this topic [facility]-Obesity Intervention Completed 023, 03/18/2022, 12/09/2021 HPV Vaccines Aged Out No longer eligi ble based on patient's age to complete this topic [facility]-HIB Vaccines Aged Out No longer e ligible based on patient's age to complete this topic [facility]-IPV Vaccines Aged Out No longer e ligible based on patient's age to complete this topic [facility]-Rotavirus Vaccines Aged Out No lo nger eligible based on patient's age to complete this topic Procedures Procedure Name Priority Date/Time Associated Diagnosis Comments POCT GLYCOSYLATED HEMOGLOBIN (HGB A1C) Routine 07/02/2022 12:42 PM EDT Type 2 diabetes mellitus with other specified complication, with long-term current use of insulin ([facility]) from Last 3 Months or Most Recently Relevant to Health Maintenance Results * POCT glycosylated hemoglobin (Hb A1C) docked device (07/02/2022 12:42 PM EDT) POCT Hemoglobin A1C 7.5 4.4-6.6 % % [facility] Kit Lot Number na [facility] Kit Expiration Date [facility] Blood Venous blood specimen / Unknown 07/02/2022 12:42 PM EDT Sabine Noonan [employer] POINT OF CARE TEST ENTER/ED IT ORDERABLES Final Result [facility] [address] [place] [address] from Last 3 Months or Most Recently Relevant to Health [place] [address] [facility] Care Teams Seaman Relationship Specialty Start Date End Date Andi Garvin MD [address] [id number] [facility] - General 07/06/20
--- OUTSIDE RECORDS SUMMARY | 2024-10-07 10:45 | XMS_ITS | Clinical Summary ---
Author Organization [facility] Address [address] [place] [address] Care Team Providers Care Ice Rink Attendant Name Role Phone Andi Garvin MD Primary Care Provider + [phone] Allergies Active Allergy Reactions Criticality Noted Date Comments Hydrocodone-Acetaminoph en Nausea And Vomiting 03/30/2017 N/V Penicillins Shortness Of Breath High 03/30/2017 HEAVY CHEST AND SOA Sulfa Antibiotics Rash Low 03/30/2017 RASH AND ITCHING Medications atorvastatin (LIPITOR) 80 MG tablet Take 80 mg by mouth Every Night. Active Dapagliflozin Propanediol (FARXIGA) 10 MG tablet Take 10 mg by mouth Daily. Active glimepiride (AMARYL) 4 MG tablet Take 4 mg by mouth 2 (Two) Times a Day. Active levothyroxine (SYNTHROID, LEVOTHROID) 125 MCG tablet Take 125 mcg by mouth Daily. Active diazePAM (VALIUM) 5 MG tablet Take 5 mg by mouth As Needed. 7 Active fluticasone (FLONASE) 50 MCG/ACT nasal spray 1 spray into each nostril As Needed. 7 Active hydrocortisone 2.5 % ointment Apply 1 application topically As Needed. 7 Active triamcinolone (KENALOG) 0.1 % paste 1 application As Needed. 7 Active metFORMIN ER (GLUCOPHAGE-XR) 500 MG 24 hr tablet Take 2 tablets by mouth 2 (Two) Times a Day. Active omeprazole (priLOSEC) 40 MG capsule Take 40 mg by mouth Daily. Active Turmeric Curcumin 500 MG capsule Take 2 tablets by mouth Daily. Active Multiple Vitamins-Mineral s (MULTIVITAMIN ADULT) tablet Take 1 tablet by mouth Daily. Active benzonatate (TESSALON) 200 MG capsule Take 200 mg by mouth 3 (Three) Times a Day As Needed for Cough. Active Active Problems Problem Noted Date Diagnosed Date Palpitation 04/02/2017 Overview (04/02/2017): Added automatically from request for surgery [id number] Chest discomfort 04/02/2017 Overview (04/02/2017): Added automatically from request for surgery [id number] Family History Medical History Relation Name Comments Cancer Brother 1 Cancer Brother 2 Cancer Brother 3 No Known Problems Father Stroke Mother Cancer Sister Relation Name Status Comments Brother 1 Brother 2 Brother 3 Father Mother Sister Social History Tobacco Use Types Packs/Day Years Used Date Smoking Tobacco: Never Smokeless Tobacco: Never Alcohol Use Standard Drinks/Week Comments No 0 (1 standard drink = 0.6 oz pur e alcohol) Abuse Screen Answer Date Recorded Unsafe at Home or Work/School Not on file Feels Threatened by Someone? Not on file 10/2022 Does Anyone Keep You from Co ntacting Others or Doint Things Outside the Home? Not on file 12/01/2022 Physical Sign of Abuse Present Not on file 1 Housing Stability Answer Date Recorded Current Living Arrangements Not on file 10/2022 Potentially Unsafe Housing Conditions Not on aiden e 12/01/2022 Family and Community Support Answer Hal e Recorded Help with Day-to-Day Activities Not on file 12/01/2022 Lonely or Isolated Not on file 12/01/2022 Employment Answer Date Recorded Do you want help finding or keeping work or a marleen b? Not on file 12/01/2022 Disabilities Answer Date Recorded Concentrating, Remembering, or Making Decisions Difficulty Not on file 12/01/2022 Doing Errands Independently Difficulty Not on fi le 12/01/2022 Education Answer Date Recorded Help with school or training? Not on file Preferred Language Not on file 12/01/2022 Comments Unknown Sex and Gender Information Value Date Recorded Sex Assigned at Not on file Legal Sex Female 10:39 AM EDT Gender Identity Not on file Sexual Orientation Not on file Last Filed Vital Signs Vital Sign Reading Time Taken Comments Blood Pressure 117/58 04/07/2017 6:15 PM EST Pulse 66 04/07/2017 6:15 PM EST Temperature 36.4 C (97.6 F) 04/07/2017 8:45 AM EST Respiratory Rate 14 04/07/2017 3:29 PM EST Oxygen Saturation 96% 04/07/2017 6:15 PM EST Inhaled Oxygen Concentration - - Weight 71.8 kg (158 lb 4.6 oz) 04/07/2017 8:45 A M EST Height 154.9 cm (5' 1 ) 04/07/2017 8:45 AM EST Body Mass Index 29.91 04/07/2017 8:45 AM EST Plan of Treatment Health Maintenance Due Date Last Done Comments DXA SCAN 1942 TDAP/TD VACCINES (1 - Tdap) 1961 COLOGUARD 12/17/1987 COLON CANCER SCREENING 5 YEAR SIGMOIDOSCOPY 12/17/1987 COLONOSCOPY 12/17/1987 COLORECTAL CANCER SCREENING 12/17/1987 CT COLONOGRAPHY 12/17/1987 FECAL OCCULT BLOOD TEST 12/17/1987 FIT Testing (1 year) 12/17/1987 Pneumococcal Vaccine 50+ (1 of 1 - PCV) 1992 ZOSTER VACCINE (1 of 2) 1992 ANNUAL PHYSICAL 03/30/2017 RSV Vaccine - Adults (1 - 1-dose 75+ series) 8 COVID-19 Vaccine ( - 2023- season) 2023 INFLUENZA VACCINE 11/23/2024 MAMMOGRAM Discontinued 04/18/2015 Procedures Procedure Name Priority Date/Time Associated Diagnosis Comments MAMMO DIAGNOSTIC LEFT W CAD Routine 04/18/2015 7:30 AM EST from Last 3 Months or Most Recently Relevant to Health Maintenance Results * Mammo diagnostic left w CAD (04/18/2015 7:30 AM EST) Anatomical Region Laterality Modality Breast Left Mammography 04/18/2015 7:30 AM EST Narrative 04/18/2015 3:24 PM EST EXAMINATION- LEFT DIAGNOSTIC DIGITAL MAMMOGRAM- CLINICAL INDICATION- 74-year-old female referred by Dr. Antonio for second opinion from an examination from [facility] 03/15/2015, recommending a biopsy of deep left 9-00 calcifications. TECHNIQUE- Unilateral full field digital mammography was performed using both 2 and 3-dimensional acquisitions. Additionally magnification ML and CC views were performed. COMPARISON- 03/15/2015, 01/30/2014, and 01/04/2013 from [facility]. FINDINGS- There are scattered fibroglandular densities on the left. The left parenchymal tissue pattern is stable. 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 These are however increasing and stereotactic biopsy is recommended. There is otherwise no mass, group of calcifications, or distortion to suggest malignancy. Subareolar coarse calcifications are stable. IMPRESSION- Increasing calcifications in the deep left 9-00 position. Otherwise stable left mammogram. BIRADS CATEGORY- IV, SUSPICIOUS RECOMMENDATION- Stereotactic biopsy. The patient will be referred back to Dr. Antonio. CAD was utilized. The standard false-negative rate of mammography is between 10% and 25%. Complex patterns or increased breast density will markedly elevate the false-negative rate of mammography. A letter, in lay terminology, with the results of this exam was given to the patient at the time of the visit. Physician Order- Stereotactic Breast Biopsy Diagnosis- Abnormal Mammogram Reading Radiologist- ESTEFANI VIGIL Releasing Radiologist- ESTEFANI VIGIL Released Date Time- 04/18/15 1524 Keel Press Operator- WillardMGénesis Procedure Note Estefani Weston MD - 04/18/2015 EXAMINATION- LEFT DIAGNOSTIC DIGITAL MAMMOGRAM- CLINICAL INDICATION- 74-year-old female referred by Dr. Antonio for second opinion from an examination from [facility] 03/15/2015, recommending a biopsy of deep left 9-00 calcifications. TECHNIQUE- Unilateral full field digital mammography was performed using both 2 and 3-dimensional acquisitions. Additionally magnification ML and CC views were performed. COMPARISON- 03/15/2015, 01/30/2014, and 01/04/2013 from [facility]. FINDINGS- There are scattered fibroglandular densities on the left. The left parenchymal tissue pattern is stable. 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 These are however increasing and stereotactic biopsy is recommended. There is otherwise no mass, group of calcifications, or distortion to suggest malignancy. Subareolar coarse calcifications are stable. IMPRESSION- Increasing calcifications in the deep left 9-00 position. Otherwise stable left mammogram. BIRADS CATEGORY- IV, SUSPICIOUS RECOMMENDATION- Stereotactic biopsy. The patient will be referred back to Dr. Antonio. CAD was utilized. The standard false-negative rate of mammography is between 10% and 25%. Complex patterns or increased breast density will markedly elevate the false-negative rate of mammography. A letter, in lay terminology, with the results of this exam was given to the patient at the time of the visit. Physician Order- Stereotactic Breast Biopsy Diagnosis- Abnormal Mammogram Reading Radiologist- ESTEFANI VIGIL [facility] Radiologist- ESTEFANI VIGIL Released Date Time- 04/18/15 1524 Keel Press Operator- Maulik Brenda Antonio MD IMG MAMMOGRAPHY ORDERABLE S Final Result from Last 3 Months or Most Recently Relevant to Health Maintenance Insurance MEDICARE A & B Member Subscriber Plan / Payer (Ef fective 2007-Present) Name:Amber Eduardo Member ID:[id number] Relation to Subscriber:Self Name:Amber Eduardo Subscriber ID:[id number] Payer ID:[id number] Group ID:Not on file Type:Not on file Address: [facility] [id number] [place] [id number] [facility] Care Teams Ice Rink Attendant Relationship Specialty Start Date End Date Andi Garvin MD [address] [facility] [address] [place] [address] PCP - General 04/17/15
--- OUTSIDE RECORDS SUMMARY | 2024-10-07 10:45 | XMS_ITS | Clinical Summary ---
Author Organization [facility] Address [address] [place] [address] Phone Care Team Providers Care Air Brake Worker Name Role Phone Unavailable Primary Care Provider Unavailabl e Allergies Active Allergy Reactions Criticality Noted Date Comments Hydrocodone-Acetaminoph en Nausea And Vomiting,Other (See Comments) Low 03/30/2017 N/V Penicillins Anaphylaxis,Shortnes s Of Breath High 03/30/2017 HEAVY CHEST AND SOA Sulfa (Sulfonamide Antibiotics) Itching,Rash Medium 03/30/2017 RASH AND ITCHING Medications diazePAM (VALIUM) 5 mg Oral Tablet 7 Active fluconazole (DIFLUCAN) 150 mg Oral Tablet 3 Active meloxicam (MOBIC) 15 mg Oral Tablet 3 Active PEN NEEDLE 31 gauge x 05/08 Misc Needle Use once daily 3 Active methylPREDNISolone (MEDROL DOSPACK) 4 mg Oral Tablets, Dose PackIndications:DD D (degenerative disc disease), lumbar,Primary osteoarthritis of right hip follow package directions 1 Each 3 Active Social History Tobacco Use Types Packs/Day Years Used Date Smoking Tobacco: Never Assessed Comments Unknown Sex and Gender Information Value Date Recorded Sex Assigned at Not on file Legal Sex Female 5:07 AM EDT Gender Identity Not on file Sexual Orientation Not on file Last Filed Vital Signs Vital Sign Reading Time Taken Comments Blood Pressure - - Pulse - - Temperature - - Respiratory Rate - - Oxygen Saturation - - Inhaled Oxygen Concentration - - Weight 68.5 kg (151 lb) 08/29/2022 1:51 PM EDT Height 154.9 cm (5' 1 ) 08/29/2022 1:51 PM EDT Body Mass Index 28.53 08/29/2022 1:51 PM EDT Plan of Treatment Health Maintenance Due Date Last Done Comments Wellness Exam Medicare 1945 Lipids 1952 Diabetic Eye Exam 1960 Kidney Health: eGFR 1960 Kidney Health: uACR 1960 Pneumococcal Vaccine 50+ (1 of 1 - PCV) 1992 Zoster (1 of 2) 1992 DTaP/TDaP/Td (1 - Tdap) 05/01/1996 04/30/1996 Bone Density Screening 12/17/2007 RSV or 60+ (1 - 1-dose 75+ series) 2017 Hemoglobin A1c 01/02/2023 07/02/2022 COVID-19 Vaccine ( - 2023-2 5 season) 2023 Influenza Vaccine (#1) 2024 0, 12/23/2016 Hepatitis B Vaccine Aged Out No longe r eligible based on patient's age to complete this topic Meningococcal B Vaccine Aged Out No l onger eligible based on patient's age to complete this topic Insurance MEDICARE [place] PART A AND B MEDICARE SUPPLEMENT
--- NOTE | 2024-10-07 10:52 | XR_ITS ---
FINAL REPORT CLINICAL HISTORY: Pre op surgery clearance COMPARISON: 05/06/2024 FINDINGS: No acute pulmonary density is evident. There is no evidence of effusion or other pleural disease. The mediastinum has a normal appearance. The cardiac silhouette is unremarkable. IMPRESSION: Unremarkable chest exam. Authenticated and [facility]
--- NOTE | 2024-10-07 11:22 | ECG_ITS ---
APPROVED REPORT Exam: Resting ECG HR:62 bpm ECG Measurements Heart Rate 62 AXES IN 321 P 65 QRSd 156 QRS -21 QT 419 T 6 QTc 425 Conclusion SINUS RHYTHM WITH FIRST DEGREE AV BLOCK BORDERLINE LEFT AXIS DEVIATION [QRS AXIS < -20] RIGHT BUNDLE BRANCH BLOCK [120+ ms QRS DURATION, UPRIGHT V1, 40+ ms S IN I/aVL/V4/V5/V6] ABNORMAL ECG UNCONFIRMED REPORT Electronically signed by : Petey Gonzalez MD 10/09/2024 12:47:09
[2024-10-07 11:44] LABS: Hematocrit 36.0 % (37.0-47.0); Hemoglobin 11.3 g/dL (12.2-16.2); Immature Granulocytes % 0.4 %; Mean Corpuscular HGB Conc 31.4 g/dL (31.8-35.4); Mean Corpuscular Hemoglobin 28.3 pg (27.0-31.2); Mean Corpuscular Volume 90.2 fl (81-99); Nucleated Red Blood Cells % 0 %; Platelet Count 264 K/mm3 (142-424); Red Blood Count 3.99 M/mm3 (4.20-5.40); Red Cell Distribution Width-SD 42.5 fL; White Blood Count 5.7 K/mm3 (4.8-10.8)
[2024-10-07 11:55] LABS: Chloride 107 mmol/L (98-107); Sodium 139 mmol/L (136-145)
[2024-10-07 11:56] LABS: Potassium 4.6 mmoL/L (3.5-5.1)
[2024-10-07 11:58] LABS: Blood Urea Nitrogen 42 mg/dl (7-17); Creatinine Clearance Estimated 36 mL/min (50-200); Creatinine,Serum 1.40 mg/dl (0.52-1.04); Estimated Glomerular Filt Rate 36 ml/min (>60); GFR (African American) 44 ML/MIN (>60)
[2024-10-07 11:59] LABS: Anion Gap 11.6 mEq/L (5-15); Calcium 9.1 mg/dl (8.4-10.2); Carbon Dioxide 25 mmol/L (22.0-30.0); Glucose 185 mg/dl (74-100)
== END 2024-10-07 23:59 | disposition home or self-care (01) ==
LOC: PREOP 10:41
PROVIDERS: PCP Internal Medicine Adolescent Medicine; Visit Provider Orthopaedic Surgery
DX: Z01.810 Encounter for preprocedural cardiovascular examination (principal); Z01.811 Encounter for preprocedural respiratory examination; Z01.812 Encounter for preprocedural laboratory examination; I44.0 Atrioventricular block, first degree; I45.10 Unspecified right bundle-branch block; R94.31 Abnormal electrocardiogram [ECG] [EKG]
CPT/HCPCS: 71046; 80048; 85025; 93005

== ENCOUNTER 2024-10-11 06:03 | Day surgery (SDC) | payer MEDICARE, BC, SELFPAY ==
[2024-10-10 10:41] VITALS: BMI 30.5
[2024-10-11 06:45] VITALS: BP 117/58; PULSE 61; RESP 18; TEMP 36.5; O2SAT 95
[2024-10-11] MEDS: LACTATED RINGERS 1000ML 1,000 ML 100 ML IV (06:45)
[2024-10-11] MEDS: LIDOCAINE 1% 10ML MDV 10 ML (07:27)
[2024-10-11] MEDS: TRIAMCINOLONE ACET 40MG/ML VIAL 80 MG (07:27)
[2024-10-11 07:36] VITALS: BP 116/58; PULSE 59; RESP 16; TEMP 36.3; O2SAT 93
--- NOTE | 2024-10-11 07:41 | XR_ITS ---
FINAL REPORT CLINICAL HISTORY: R HIP INJ 0.0 tammi 1.03 mGy FINDINGS: Fluoroscopy Fluoroscopic guidance was provided. A single spot film was obtained. A total of 0.0 minutes of fluoroscopy time was used for right hip injection. 1.03 mGy utilized. IMPRESSION: Fluoroscopy as above. Reviewed, Interpreted and Dictated by Dilip Wilkerson MD Transcribed by Jonelle Goldstein Authenticated and [facility]
--- NOTE | 2024-10-11 07:46 | EXP.OP.NOTE ---
Date of procedure: 10/11/24 Pre-op Diagnosis:: Right hip osteoarthritis Post-op Diagnosis:: Same Procedure performed:: Right hip injection with arthrogram, x-ray guidance for needle placement Surgeon:: Von Doll DO PARIMUTUEL TICKET CHECKER:: Teodoro Dominguez Anesthesia: MAC Estimated blood loss (mL): 0 Operative findings:: See dictation Operative note:: Patient identified preoperatively. Right hip marked with yes my initials. Patient transported to operative suite placed upon the radiolucent bed. Right hip prepped and draped normal sterile fashion. Once prepped and draped final operative timeout performed to identify proper patient procedure and extremity. Everyone involved in the case agreed. X-ray was brought into identify the hip joint. 18-gauge spinal needle was directed into the hip capsule with x-ray guidance. Once within the hip capsule arthrogram performed to confirm needle placement within the capsule this was confirmed radiographically and then injection of 80 mg of Kenalog and 3 cc of 1% lidocaine injected to the hip joint needle removed Band-Aid placed patient tolerated procedure well. Taken recovery stable condition. Condition: stable Disposition: PACU Complications:: None apparent
[2024-10-11 07:51] VITALS: BP 104/67; PULSE 52; RESP 16; TEMP 36.3; O2SAT 96
[2024-10-11 08:06] VITALS: BP 102/55; PULSE 51; RESP 16; TEMP 36.3; O2SAT 97
--- NOTE | 2024-10-11 08:44 | P.PNANES_ITS ---
[facility] Disclaimer: The information contained in this section may have been updated after the patient was seen, as this information can be updated by other users. Medical History History of trigger finger HTN (hypertension) Dyspnea on exertion Asthma Multiple lung nodules on CT Tinnitus, bilateral Diabetes mellitus Bilateral tinnitus Surgical History History of ankle surgery Family History Other No significant family history Social History Smoking Status: Never smoker second hand exposure: No alcohol intake: never substance use type: denies use current occupational status: retired Travel in the last 8 weeks?: None household members: spouse housing: house current occupational exposures/hazards: No caffeine: Yes Have you lived/traveled outside [place] in past 30 days?: No Contact w/someone who lives/traveled outside [place] past 30 days?: No Exposure to someone with infectious disease in past 14 days?: No Do you have a fever (greater than 100.4 F or 38 C)?: No Have you tested positive for COVID-19?: No Exposed to someone with COVID-19 in past 14 days?: No Do you have a sore throat?: No Do you have a cough?: No Do you have any weakness?: No Do you have any diarrhea?: No Are you experiencing any unusual bleeding?: No Do you have any muscle aches/pain?: No Do you have any abdominal pain?: No Are you experiencing loss of taste or smell?: No [facility] Anesthesia Checklist Patient Identification Patient Identification: Verbal (Name & ) Structural Data Admitted From: Home Planned Operative Procedure/s: r hip injection NPO Status Verified Time NPO: 00:00 Additional verifications Anesthesia Reactions: No Hx Blood Transfusions: No Blood Transfusion Reaction: No Airway Assessment Mallampati Score:: Class II C-Spine Mobility Assessed: Yes TMJ Mobility Assessed: Yes Dentition: Good Dentition Neurological Assessment Level of Consciousness: Awake, Alert and Appropriate Anesthesia Plan Anesthesia Risk discussed: Yes Anesthesia Plan: Verified ASA Class: II Anesthesia Type: General
[2024-10-11 13:21] LABS: POC Glucose,Bedside 68 (70-110)
== END 2024-10-11 08:19 | disposition home or self-care (01) ==
PROVIDERS: PCP Internal Medicine Adolescent Medicine; Visit Provider Orthopaedic Surgery
PROC: 3E0U3GC Introduction of Other Therapeutic Substance into Joints, Percutaneous Approach (ICD-10-PCS; CPT 20610; principal; 2024-10-11 07:30)
DX: M16.11 Unilateral primary osteoarthritis, right hip (principal); I10 Essential (primary) hypertension; J45.909 Unspecified asthma, uncomplicated; E11.9 Type 2 diabetes mellitus without complications; E66.3 Overweight; Z68.30 Body mass index [BMI] 30.0-30.9, adult; Z88.5 Allergy status to narcotic agent; Z88.0 Allergy status to penicillin; Z88.6 Allergy status to analgesic agent; Z79.4 Long term (current) use of insulin; Z79.890 Hormone replacement therapy; Z79.899 Other long term (current) drug therapy; Z79.51 Long term (current) use of inhaled steroids
CPT/HCPCS: 20610; 73502; 82962; J2003; J2704; J3301; J7120

== ENCOUNTER 2024-12-02 12:36 | Outpatient (CLI) | payer MEDICARE, BC, SELFPAY ==
--- NOTE | 2024-12-02 13:00 | CT_ITS ---
FINAL REPORT TECHNIQUE: Thin section axial images were obtained from the lung apices through the upper abdomen without contrast. This study was performed with techniques to keep radiation doses as low as reasonably achievable (ALARA). Individualized dose reduction techniques using automated exposure control or adjustment of mA and/or kV according to the patient's size were employed. CLINICAL HISTORY: Nodule COMPARISON: 07/01/2024 FINDINGS: There is no mediastinal, hilar, or axillary lymphadenopathy. No pleural or pericardial effusion. There is a small nodule posterior to the left major fissure best seen on image #43 of series 2, stable. There is a right middle lobe nodule slightly smaller than seen on the prior exam, measuring 4 mm in size and best seen on image #39 of series 2. There are several other very small scattered nodules which appear stable. No new consolidation is noted, and no new nodules are identified. Nonobstructing stones are noted in the left renal collecting system, this area was not visualized on the prior exam. Bilateral small adrenal nodules are again noted, stable. There is no acute osseous abnormality. IMPRESSION: 1. Right middle lobe nodule slightly smaller than seen on the prior exam, measuring 4 mm on the current exam. 2. Small bilateral adrenal nodules are once again noted, stable in appearance. 3. Nonobstructing left renal stones, not seen on the prior exam as this area was not imaged. Reviewed, Interpreted and Dictated by Italia Alfaro MD Transcribed by Rosa Ghosh Authenticated and [facility]
== END 2024-12-02 23:59 | disposition home or self-care (01) ==
LOC: RAD 12:37
PROVIDERS: PCP Internal Medicine Adolescent Medicine; Visit Provider Internal Medicine Pulmonary Disease
DX: R91.1 Solitary pulmonary nodule (principal); E27.8 Other specified disorders of adrenal gland; N20.0 Calculus of kidney
CPT/HCPCS: 71250